=== PATIENT | male | born 1950 | race Caucasian/White ===

== ENCOUNTER 2019-09-11 09:40 | Outpatient (CLI) | payer OTHER, SELFPAY ==
[2019-09-09 11:01] VITALS: BMI 34.0
[2019-09-11] VITALS (7 sets, daily range): BP systolic 115–137; BP diastolic 65–84; PULSE 45–58; RESP 15–18; O2SAT 97–99
--- NOTE | ~2019-09-11 | XR_ITS ---
EXAMINATION: 1. CT lumbar spine w con 2. XR myelogram spine lumbosacral DATE: 09/11/2019 12:06 INDICATION: Degeneration of lumbar intervertebral disc. TECHNIQUE: The procedure including the risks, benefits, and alternatives was discussed with the patie nt. Risks discussed included spinal headache, cerebrospinal fluid leak, bleeding, and infection. The patient understood the risks and agreed to proceed. A timeout was performed to verify the patient' s name, date of , and procedure to be performed. The skin overlying the L2-L3 level was prepped and draped in usual sterile fashion. Subcutaneous 1% lidocaine was used for local anesthesia. A 22 gauge spinal needle was advanced under fluoroscopic guidance. 17 mL Omnipaque 180 was injected. The needle was removed and the entry site was cleaned and dressed. There were no immediate complications . Fluoroscopy exposure time was 0.5 minutes. The total number of images was 9. Computed tomography (C T) of the lumbar spine was performed without intravenous contrast. The mA was adjusted according to p atient size. Iterative reconstruction technique was employed. The dose-length product was 1089.90 mGy -cm. FINDINGS: LUMBAR MYELOGRAM: Real-time fluoroscopy demonstrates the needle at the L2-L3 level. There are indentations of the theca l sac that will be further described on the CT. POST-MYELOGRAM LUMBAR SPINE CT: There is 8 degrees dextrocurvature of lumbar spine. There are chronic bilateral L5 pars defects. Ther e is 7 mm anterolisthesis of L5 on S1. There is mildly decreased disc height at L1-L2, severely decre ased disc height at L2-L3, moderately decreased disc height at L3-L4, and severely decreased disc hei ght at L4-L5 and L5-S1 with endplate remodeling. The distal spinal cord morphology is normal. The con us medullaris is at L1. There is both subdural and intrathecal injection of contrast. Mass effect of the subdural component of the ejection causes moderate central canal stenosis at L4 that should resol ve with time. The following disc levels are specifically discussed: L1-L2: The disc is bulging. There is mild bilateral facet joint osteoarthritis. There is mild bilater al neural foraminal stenosis. There is mild central canal stenosis. L2-L3: The disc is bulging. There is mild bilateral facet joint osteoarthritis. There is mild bilater al neural foraminal stenosis. There is mild central canal stenosis. L3-L4: The disc is bulging. There is mild bilateral facet joint osteoarthritis. There is mild bilater al neural foraminal stenosis. There is mild central canal stenosis. L4-L5: The disc is bulging. There is severe bilateral facet joint osteoarthritis. There is moderate b ilateral neural foraminal stenosis. There is mild central canal stenosis. L5-S1: The disc is bulging. There is moderate right and mild left facet joint osteoarthritis. There i s moderate bilateral neural foraminal stenosis. There is mild central canal stenosis. IMPRESSION: 1. Severe lumbar spondylosis. Reviewed, dictated and finalized at location A. IMPRESSION: 1. Severe lumbar spondylosis.
[2019-09-11 11:17] LABS: Mean Platelet Volume 9.6 fl (7.4-10.4); Platelet Count Result 205 k/mm3 (150-375); Prothrombin Time 13.1 Seconds (11.1-14.7)
== END 2019-09-11 09:41 | disposition home or self-care (01) ==
PROVIDERS: Radiology Diagnostic Radiology
DX: M51.36 Other intervertebral disc degeneration, lumbar region (principal); M47.896 Other spondylosis, lumbar region
CPT/HCPCS: 36415; 62304; 72132; 85049; 85610; Q9965

== ENCOUNTER 2023-03-14 01:12 | Day surgery (SDC) | payer BC, SELFPAY ==
[2023-03-01 14:59] VITALS: BMI 34.2
--- NOTE | 2023-03-12 09:31 | SUR.PREOP ---
Patient called regarding upcoming procedure. Reviewed preop instructions, appointment times, and procedure prep.
--- NOTE | 2023-03-13 16:57 | PM.HPGS ---
History of Present Illness History of Present Illness Consent: Risks, benefits, and alternatives have been discussed and questions answered. Patient agrees to proceed with procedure. Chief complaint: history of colon polyp Narrative: Vic Barnett is a 72 year old male Referred for colon cancer screening. He does have history of polyps in fact had 3 adenomas removed 5 years ago. Review of Systems Review of Systems: All systems reviewed & are unremarkable except as noted in HPI and below PMFSH Social History Social History Years smoked: 20 Smoking status: Current every day smoker Tobacco type: cigars Substance use: current Substance use type: marijuana Last use: 02/26/23 Living arrangements: alone Meds Home Medications and Allergies Home Medications Medication Instructions Recorded Confirmed Type atorvastatin 40 mg tablet 40 mg PO HS 09/09/19 03/14/23 History ezetimibe 10 mg tablet 10 mg PO HS 09/09/19 03/14/23 History losartan 50 mg-hydrochlorothiazide 1 tablet PO DAILY 09/09/19 03/14/23 History 12.5 mg tablet amlodipine 5 mg tablet 5 mg PO DAILY 03/01/23 03/01/23 History aspirin 81 mg tablet 81 mg PO DAILY 03/01/23 03/14/23 History celecoxib 200 mg capsule 200 mg PO DAILY 03/01/23 03/14/23 History potassium chloride 20 mEq 20 meq PO DAILY 03/01/23 03/14/23 History tablet,extended release(part/cryst) (Klor-Con M) Allergies Allergy/AdvReac Type Severity Reaction Status Date / Time No Known Allergies Allergy Verified 03/14/23 11:34 Exam Resp: Auscultation: clear to auscultation bilaterally Cardio: Rate: regular rate Rhythm: regular rhythm GI: GI Palp: Yes Soft to palpation and No Tenderness to palpation present (GI) Assessment and Plan Assessment and plan (1) Colon cancer screening: Code(s): Z12.11 - Encounter for screening for malignant neoplasm of colon Status: Acute Assessment and Plan: Colonoscopy with possible biopsy or polypectomy or cautery or injection of substances.
[2023-03-14 11:38] VITALS: BP 123/75; PULSE 71; RESP 18; TEMP 36.4; O2SAT 98; BMI 34.1
[2023-03-14] MEDS: LACTATED RINGERS 1,000 ML 150 ML IV CONT (11:41)
--- NOTE | 2023-03-14 11:48 | WPDANESEPPF ---
Anes - Initial Pre Proc Eval Procedure: Operation Date: 03/14/23 13:00 Proposed Procedures p Colonoscopy - Edward Eddy MD Date/Time: 03/14/23 11:48 Surgeon: Edward Eddy MD Pre Op Diagnosis: history of colon polyp Patient Data Age: 72 Gender: M Height: 1.73 m Weight: 101.8 kg Last Vital Signs Temp 97.5 F L 03/14/23 11:38 Pulse 71 03/14/23 11:38 Resp 18 03/14/23 11:38 BP 123/75 03/14/23 11:38 Pulse Ox 98 03/14/23 11:38 O2 Del Method Room Air 03/14/23 11:38 Allergies Allergy/AdvReac Type Severity Reaction Status Date / Time No Known Allergies Allergy Verified 03/14/23 11:34 Home Medications Medication Instructions Recorded Confirmed Type atorvastatin 40 mg tablet 40 mg PO HS 09/09/19 03/14/23 History ezetimibe 10 mg tablet 10 mg PO HS 09/09/19 03/14/23 History losartan 50 mg-hydrochlorothiazide 1 tablet PO DAILY 09/09/19 03/14/23 History 12.5 mg tablet amlodipine 5 mg tablet 5 mg PO DAILY 03/01/23 03/01/23 History aspirin 81 mg tablet 81 mg PO DAILY 03/01/23 03/14/23 History celecoxib 200 mg capsule 200 mg PO DAILY 03/01/23 03/14/23 History potassium chloride 20 mEq 20 meq PO DAILY 03/01/23 03/14/23 History tablet,extended release(part/cryst) (SarahCon M) Patient hx anesthesia problems: none Family hx anesthesia problems: none Results Review: All pre-operative results and documents have been reviewed as part of the pre-operative evaluation. [facility] Social History Social History Years smoked: 20 Smoking status: Current every day smoker Tobacco type: cigars Substance use: current Substance use type: marijuana Last use: 02/26/23 Living arrangements: alone Anes - Eval Final PreProcedure Day of Procedure 03/14/23 11:48 Patient weight: obese Heart: regular rate and rhythm Lungs: clear to auscultation Airway: Mallampati scale class II Neurological: alert and oriented Last oral intake: >/= 8 hours ASA classification: III Emergent: no Anesthetic plan: proceed Anesthesia type and monitoring: general GIVS and standard monitoring Results Review: All pre-operative results and documents have been reviewed as part of the pre-operative evaluation. Informed Consent: The patient's anesthetic plan and its attendant risks and benefits were discussed with the patient/family/POA. Questions were solicited and answers provided to the satisfaction of the patient/family/POA.
[2023-03-14] MEDS: SIMETHICONE ORAL SUSPENSION 20 MG/0.3 ML 30 ML BOTTLE 0.6 ML IRRIGATION (12:47)
[2023-03-14 13:00] VITALS: BP 83/45; PULSE 53; RESP 17; O2SAT 98
[2023-03-14 13:10] VITALS: BP 112/56; PULSE 49; RESP 18; O2SAT 100
[2023-03-14 13:20] VITALS: BP 118/68; PULSE 49; RESP 19; O2SAT 99
== END 2023-03-14 13:29 | disposition home or self-care (01) ==
PROVIDERS: Visit Provider Internal Medicine Gastroenterology
PROC: 0DJD8ZZ Inspection of Lower Intestinal Tract, Via Natural or Artificial Opening Endoscopic (ICD-10-PCS; CPT 45378; principal; 2023-03-14 13:00)
DX: Z12.11 Encounter for screening for malignant neoplasm of colon (principal); D12.3 Benign neoplasm of transverse colon; F17.290 Nicotine dependence, other tobacco product, uncomplicated; F12.90 Cannabis use, unspecified, uncomplicated; E66.9 Obesity, unspecified; Z68.34 Body mass index [BMI] 34.0-34.9, adult; Z79.82 Long term (current) use of aspirin; Z86.010 Personal history of colon polyps
CPT/HCPCS: 45385; 88305; J2704; J7120

== ENCOUNTER 2023-07-23 06:40 | Outpatient (CLI) | payer BC, SELFPAY ==
--- NOTE | ~2023-07-23 | MR_ITS ---
EXAMINATION: MR brain/brain stem wo/w con DATE: 07/23/2023 07:34 INDICATION: Altered mental status, unspecified. TECHNIQUE: Magnetic resonance imaging (MRI) of the brain and brainstem was performed without intraven ous contrast. COMPARISON: None. FINDINGS: There is no intracranial hemorrhage, acute infarction, or abnormal intracranial mass lesion . The ventricles are normal in size. There is mild mucosal thickening in the paranasal sinuses. There are likely changes of left ocular lens replacement surgery. The mastoid air cells are normal. IMPRESSION: 1. Normal brain. Reviewed, dictated and finalized at location E. IMPRESSION: 1. Normal brain.
--- NOTE | ~2023-07-23 | US_ITS ---
EXAMINATION: US carotid duplex BI DATE: 07/23/2023 08:01 INDICATION: Altered mental status TECHNIQUE: Grayscale, color Doppler, and pulsed Doppler images of the cervical carotid arteries were obtained. The degree of vessel stenosis is placed in one of the following categories: normal, <50%, 5 0-69%, >=70% but less than near-occlusion, near-occlusion, or total occlusion. Note that percent sten osis relative to normal distal artery lumen diameter is indirectly measured from velocity measurement s as described by Luis, et al. Radiology 2003; 229:340-346. Notes: Normal: Peak systolic velocity <125 centimeters/sec and no plaque <50%. Peak systolic velocity <125 ( EDV <40; ICA/CCA PSV ratio <2.0; used these factors only a tandem lesions or low cardiac output or co ntralateral disease) 50-69 %: PSV 125-230 (EDV 40-100; ratio 2-4) >= 70% but less than near occlusion: PSV greater than 230 (EDV > 100; ratio> 4.0) Near Occlusion: PSV that is variable; markedly narrowed lumen Occlusion: Absent flow on color/spectral Doppler and no lumen on núñez scale. COMPARISON: None. FINDINGS: RIGHT: The right common carotid artery (CCA) peak systolic velocity (PSV) is 65 cm/s. The right internal car otid artery (ICA) PSV is 72 cm/s. The right ICA end-diastolic velocity (EDV) is 22 cm/s. The right IC A/CCA PSV ratio is 1.1. The external carotid artery (ECA) PSV is 80 cm/s. There is antegrade flow in the right vertebral artery. LEFT: The left CCA PSV is 78 cm/s. The left ICA PSV is 87 cm/s. The left ICA EDV is 29 cm/s. The left ICA/C CA PSV ratio is 1.1. The ECA PSV is 88 cm/s. There is antegrade flow in the left vertebral artery. IMPRESSION: 1. Less than 50% stenosis in the right internal carotid artery by sonographic criteria. 2. Less than 50% stenosis in the left internal carotid artery by sonographic criteria. Reviewed, dictated and finalized at location B. IMPRESSION: 1. Less than 50% stenosis in the right internal carotid artery by sonographic joni lee. 2. Less than 50% stenosis in the left internal carotid artery by sonographic dany maher.
--- NOTE | ~2023-07-23 | CT_ITS ---
EXAMINATION: CT lung screening DATE: 07/23/2023 07:03 INDICATION: Personal history of nicotine dependence TECHNIQUE: Computed tomography (CT) of the chest was performed without intravenous contrast. The dose -length product was 218.94 mGy-cm. Automated exposure control and iterative reconstruction technique were employed. COMPARISON: None FINDINGS: Heart size normal. No significant pleural or pericardial effusion. There are gallstones. Th ere are calcified granulomas of the spleen. There are calcified mediastinal lymph nodes, consistent w ith chronic granulomatous disease. There is calcified granuloma right upper lobe. There is a 2 mm lef t upper lobe nodule. There is a 2 mm) fissural nodule. Mild emphysema. No pneumothorax. No endobronch ial lesions. No focal consolidation. IMPRESSION: 1. Lung-RADS category 2: Benign appearance or behavior. Continue annual screening with noncontrast lo w-dose chest CT in 12 months. Reviewed, dictated and finalized at location B. IMPRESSION: 1. Lung-RADS category 2: Benign appearance or behavior. Continue annual screeni ng with noncontrast low-dose chest CT in 12 months.
== END 2023-07-23 06:41 | disposition home or self-care (01) ==
PROVIDERS: PCP Internal Medicine; Visit Provider Internal Medicine
DX: R41.82 Altered mental status, unspecified (principal); I10 Essential (primary) hypertension; E78.5 Hyperlipidemia, unspecified; Z87.891 Personal history of nicotine dependence
CPT/HCPCS: 70553; 71271; 93880; A9577

== ENCOUNTER 2023-10-01 15:13 | Outpatient (CLI) | payer BC, SELFPAY ==
--- NOTE | ~2023-10-01 | XR_ITS ---
EXAMINATION: XR cervical spine min 6V DATE: 10/01/2023 15:44 INDICATION: Left-sided neck pain. TECHNIQUE: 7 views of cervical spine including flexion and extension views were obtained. COMPARISON: None. FINDINGS: There is 11 degrees levoscoliosis of cervical spine. There is no abnormal motion on flexion or extension. Vertebral body heights are normal. There is severely decreased disc height at C6-C7. T here is multilevel facet joint osteoarthritis, severe on the right at C4-C5. There is multilevel unco vertebral joint osteoarthritis, severe on the left at C6-C7. There is mild right neural foraminal zully nosis at C4-C5. There is moderate left neural foraminal stenosis at C6-C7. IMPRESSION: 1. Severe spondylosis at C6-C7 and mild spondylosis at other levels. 2. Cervical levoscoliosis. Reviewed, dictated and finalized at location A.
[2023-10-01 15:45] LABS: Appearance Urine Clear (Clear); Bilirubin Urine Negative (Negative); Blood Urine Negative (Negative); Color Urine Yellow (Yellow); Glucose Urine UA Negative (Negative); Ketones Urine Negative (Negative); Leukocyte Esterase Ur Negative LEU/UL (Negative); Nitrate Urine Negative (Negative); Protein Urine Negative (Negative); Urobilinogen Urine 0.2 mg/dL (<2.0); pH Urine 5.5 (5.0-9.0)
[2023-10-01 15:46] LABS: Add Urine Microscopic? NO
== END 2023-10-01 15:14 | disposition home or self-care (01) ==
LOC: ANHLAB 15:15
PROVIDERS: PCP Internal Medicine; Visit Provider Internal Medicine
DX: M43.02 Spondylolysis, cervical region (principal); M41.82 Other forms of scoliosis, cervical region; R30.0 Dysuria
CPT/HCPCS: 72052; 81003; 87086

== ENCOUNTER 2023-10-10 14:33 | Outpatient (CLI) | payer BC, SELFPAY ==
--- NOTE | ~2023-10-10 | MR_ITS ---
MRI of the cervical spine Clinical History: Cervicalgia Technique: Axial T2-weighted and gradient images, and sagittal T1-weighted, T2-weighted, and STIR mayda ges were acquired. Findings: There is no fracture or cervical spine. There is minimal grade 1 retrolisthesis of C6 over C7. No suspicious bone marrow signal abnormality seen. At C2-C3, there is no disc bulge or herniation. No spinal canal stenosis or cord compression. There i s left neural foraminal narrowing with bilateral facet arthropathy, left worse than right. Right neur al foramen preserved. At C3-C4, there is no disc bulge or herniation. No spinal canal stenosis, cord compression, or neural foraminal narrowing. At C4-C5, there is no disc bulge or herniation. No spinal canal stenosis, cord compression, or neural foraminal narrowing. At C5-C6, there is minimal disc osteophyte complex with mild bilateral facet arthropathy. There is pr obable mild bilateral neural foraminal narrowing. No canal stenosis or cord compression. At C6-C7, there is advanced degenerative disc narrowing with mild disc osteophyte complex. No jose c anal stenosis or cord compression. Probable mild left neural foraminal narrowing. No definite right n eural foraminal narrowing. No abnormal signal seen in the spinal cord. Paravertebral soft tissues are unremarkable. Impression: Mild degenerative spondylosis, as detailed above. Reviewed, dictated and finalized at [facility]. Impression: Mild degenerative spondylosis, as detailed above.
== END 2023-10-10 14:34 | disposition home or self-care (01) ==
LOC: ANHIMG 14:34
PROVIDERS: PCP Internal Medicine; Visit Provider Internal Medicine
DX: M47.892 Other spondylosis, cervical region (principal)
CPT/HCPCS: 72141

== ENCOUNTER 2023-11-19 09:34 | Outpatient (CLI) | payer BC, SELFPAY ==
--- NOTE | ~2023-11-19 | US_ITS ---
Limited ABDOMINAL ULTRASOUND Ordering provider: Carlos Dodge MD History: . E83.119 - Hemochromatosis, unspecified . Comparison: None. FINDINGS: LIVER: Normal size with increased echogenic foci seen throughout the liver.. No perihepatic fluid col lections are identified. Normal flow of the portal vein. GALLBLADDER: Small stone is seen near to the neck. This stone measures 1.2 x 0.6 x 0.9 CNM. No eviden ce for stones, sludge, gallbladder wall thickening or pericholecystic fluid collections. A negative s onographic Martinez's sign was noted. BILIARY DUCTS: No evidence for intra or extrahepatic biliary dilation. Common bile duct measures 5 mm in diameter which is within normal limits. PANCREAS: Not well visualized. UPPER ABDOMINAL AORTA: Normal in caliber. IVC: Patent. FREE FLUID: None. IMPRESSION: Stone in the neck of the gallbladder. Multiple echogenic foci in the liver. Otherwise, Unremarkable c omplete ultrasound of the abdomen. Reviewed, dictated and finalized at location A. IMPRESSION: Stone in the neck of the gallbladder. Multiple echogenic foci in the liver. Oth erwise, Unremarkable complete ultrasound of the abdomen.
== END 2023-11-19 09:35 | disposition home or self-care (01) ==
PROVIDERS: PCP Internal Medicine; Visit Provider Internal Medicine
DX: N21.0 Calculus in bladder (principal); E83.119 Hemochromatosis, unspecified; Z86.19 Personal history of other infectious and parasitic diseases
CPT/HCPCS: 76705

== ENCOUNTER 2024-07-24 13:04 | Outpatient (CLI) | payer MEDICARE, SELFPAY ==
--- NOTE | ~2024-07-24 | CT_ITS ---
EXAMINATION: CT lung screening DATE: 07/24/2024 13:27 INDICATION: Personal history of nicotine dependence TECHNIQUE: Computed tomography (CT) of the chest was performed without intravenous contrast. The dose -length product was 141.40 mGy-cm. Automated exposure control and iterative reconstruction technique were employed. COMPARISON: CT dated 07/23/2023 FINDINGS: Heart size normal. No significant pleural or pericardial effusion. There are calcified gran ulomas of the spleen. There are gallstones. There are calcified mediastinal and hilar lymph nodes, co nsistent with chronic granulomatous disease. There is atherosclerosis of the aorta and coronary arter ies. Calcified granuloma right upper lobe. Stable 1-2 mm left upper lobe nodule. No new pulmonary nod ules or masses. No focal lytic or blastic lesions. IMPRESSION: 1. Lung-RADS category 2: Benign appearance or behavior. Continue annual screening with noncontrast lo w-dose chest CT in 12 months. Reviewed, dictated and finalized at location A. IMPRESSION: 1. Lung-RADS category 2: Benign appearance or behavior. Continue annual screeni ng with noncontrast low-dose chest CT in 12 months.
--- OUTSIDE RECORDS SUMMARY | 2024-07-24 14:01 | XMS_ITS | Encounter Summary ---
Author Organization [facility] Healthcare Address [address] [place] [address] Care Team Providers Care Linen Keeper Name Role Phone Bonifacio Jewell MD Primary Care Provider [phone] Carlos Dodge MD Primary Care Provider [phone] Encounter Details Date Type Department Care Team (Late st Contact Info) Description 03/12/2023 Orders Only [facility] EpicCare Link Bonifacio Jewell MD [address] [place] [address] Low back pain (Primary Dx) Social History Tobacco Use Types Packs/Day Years Used Date Smoking Tobacco: Former Cigarettes 2 20 1 0 - 1983 Smokeless Tobacco: Never Alcohol Use Standard Drinks/Week Comments Not Currently 0 (1 standard drink = 0.6 oz pur e alcohol) AUDIT-C Answer Date Recorded Q1: How often do you have a drink containing alc ohol? Monthly or less 04/09/2021 Average Number of Drinks Not on file 021 Frequency of Binge Drinking Not on file 03/30 Sex and Gender Information Value Date Recorded Sex Assigned at Not on file Legal Sex Male 8:35 PM HOME CARE NURSE Gender Identity Male 08/05/2020 7:57 AM CDT Sexual Orientation Straight 08/05/2020 7: 57 AM CDT documented as of this encounter Plan of Treatment Not on file documented as of this encounter Goals Goal Patient Goal Type Associated Problems Recent Progress Patient-Stated? Author CCM Chronic Pain Care Plan Chronic Care Management No Alessia Leija RN Note: Problem: Chronic Pain Goals: 1. Minimize further functional decline 2. Maximize quality of life 3. Control pain Strategies: - Activity/exercise program recommendation - Conservative stepwise pain medicine strategy with multi-disciplinary approach - Recommend healthy lifestyle strategies and compensatory methods as needed Reduce the likelihood of falling Lifestyle Alessia Haley, JOSE Note: Below are four things you can do to prevent falls: 1. Begin an exercise program to improve your leg strength & balance 2. Ask your doctor or pharmacist to review your medicines 3. Get annual eye check-ups & update your eyeglasses 4. Make your home safer by: Removing clutter & tripping hazards Putting railings on all stairs & adding grab bars in the bathroom Having good lighting, especially on stairs Contact your local community or [facility] for information on exercise, fall prevention programs, or options for improving home safety. documented as of this encounter Visit Diagnoses Diagnosis Low back pain- Primary Lumbago documented in this encounter Care Teams Linen Keeper Relationship Specialty Start Date End Date Bonifacio Jewell MD [address] [place] [address] PCP - General 11/08/16 08/27/23 Carlos Dodge MD [address] [place] [address] PCP - General Internal Medicine 08/28/23 documented as of this encounter
--- OUTSIDE RECORDS SUMMARY | 2024-07-24 14:01 | XMS_ITS | Clinical Summary ---
Author Organization [facility] Address [address] [place] [address] Care Team Providers Care Literary Agent Name Role Phone Carlos Dodge MD Primary Care Provider [phone] Allergies No known active allergies Medications sildenafiL (VIAGRA) 100 mg tablet Take 1 tablet (100 mg total) by mouth daily as needed for erectile dysfunction Active aspirin 81 mg chewable tablet TAKE 1 TABLET BY MOUTH EVERY DAY 90 tablet 2 Active celecoxib (CeleBREX) 200 mg capsule daily Active atorvastatin (LIPITOR) 40 mg tablet TAKE 1 TABLET BY MOUTH EVERY DAY 90 tablet 3 4 Active losartan-hydroc hlorothiazide (HYZAAR) 100-25 mg per tablet TAKE 1 TABLET BY MOUTH EVERY DAY 90 tablet 3 4 Active ezetimibe (ZETIA) 10 mg tablet TAKE 1 TABLET BY MOUTH EVERY DAY 90 tablet 3 4 Active potassium chloride ER (Klor-Con M20) 20 mEq CR tablet TAKE 1 TABLET BY MOUTH EVERY DAY 90 tablet 3 4 Active Active Problems Problem Noted Date Diagnosed Date Sacroiliitis 04/24/2023 Lumbar radiculopathy 04/24/2023 Family history of coronary arteriosclerosis 11/2018 Spondylolisthesis of lumbar region 09/04/2018 Testicular mass 08/05/2018 Hyperuricemia 10/17/2017 Vitamin D deficiency 10/17/2017 Chronic coronary artery disease 05/31/2017 Keratosis 11/20/2016 Prostatitis 03/15/2016 Bradycardia 03/05/2015 Gastroesophageal reflux disease 03/05/2015 Hemochromatosis 03/05/2015 Hypertension 03/05/2015 Nocturia 03/05/2015 Primary basal cell carcinoma (BCC) 03/05/2015 Sinusitis 03/05/2015 Chronic hepatitis C virus infection 12/12/2010 Hyperlipidemia 09/12/2010 Alcoholism Infectious viral hepatitis Substance abuse Immunizations Immunization Administration Dates Next Due Influenza, Quadrivalent, Renita l Culture-based MDCK, Preservative Free, Antibiotic Free, Intramuscular 02/06/2018 Influenza, Unspecified 03/15/2016 Tetanus Toxoid, Unspecified 04/30/2006 ZOSTER LIVE 04/14/2014 Surgical History Surgery Date Site/Laterality Comments NO PAST SURGERIES Medical History Medical History Date Comments Hypertension Alcoholism (HCC) Infectious viral hepatitis Substance abuse (HCC) Hepatitis C HTN (hypertension) HLD (hyperlipidemia) Bradycardia Hemochromatosis Hyperuricemia GERD (gastroesophageal reflux disease) CAD (coronary artery disease) Low back pain Arthritis Skin cancer Family History Medical History Relation Name Comments Lung cancer Brother Heart failure Father Family history of heart failure - (Added by TW Conv) Cancer Maternal Grandfather Coronary artery disease Mother Fami ly history of coronary artery disease - (Added by TW Conv) Hypertension Mother Family history of hypertension - (Added by TW Conv) Stroke Mother Family history of stroke - (Added by TW Conv) Relation Name Status Comments Brother Father Maternal Grandfather Mother Social History Tobacco Use Types Packs/Day Years Used Date Smoking Tobacco: Former Cigarettes 2 20 1 0 - 1983 Cigars Smokeless Tobacco: Never Tobacco Cessation:Counseling Given: Not Answered Alcohol Use Standard Drinks/Week Comments Not Currently 0 (1 standard drink = 0.6 oz pur e alcohol) AUDIT-C Answer Date Recorded Q1: How often do you have a drink containing alcohol? Never 04/24/2023 Q2: How many drinks containi ng alcohol do you have on a typical day when you are drinking? Patient does not drink Frequency of Binge Drinking Not on file 03/31 Sex and Gender Information Value Date Recorded Sex Assigned at Not on file Legal Sex Male 8:35 PM CERTIFIED ORTHOTIST Gender Identity Male 08/05/2020 7:57 AM CDT Sexual Orientation Straight 08/05/2020 7: 57 AM CDT Obstetrics History Last Filed Vital Signs Vital Sign Reading Time Taken Comments Blood Pressure 124/80 08/28/2023 9:45 AM CDT Pulse 60 08/28/2023 9:45 AM CDT Temperature 36.4 C (97.5 F) 04/24/2023 10:13 AM CERTIFIED ORTHOTIST Respiratory Rate 16 04/24/2023 11:32 AM CERTIFIED ORTHOTIST Oxygen Saturation 96% 08/28/2023 9:45 AM CDT Inhaled Oxygen Concentration - - Weight 106.5 kg (234 lb 12 oz) 08/28/2023 9:45 A M CDT Height 175.3 cm (5' 9 ) 08/28/2023 9:45 AM CDT Body Mass Index 34.67 08/28/2023 9:45 AM CDT Plan of Treatment Health Maintenance Due Date Last Done Comments Colon Cancer Screening-Colonoscopy 1950 Depression Screening 1950 DTaP/Tdap/Td Vaccine (1 - Tdap) 12/30/1963 Hepatitis B Screening 1970 Zoster Vaccine (2 of 3) 06/09/2014 04/14/2014 Abdominal Aortic Aneurysm (A AA) Screen 2017 Well Visit 65+ 2017 Fall Risk Assessment 07/17/2019 07/16/2018 Hepatitis C Screening Completed 06/08/2016 , 06/03/2015, 05/27/2015, Additional history exists Pneumococcal vaccine 65+ Completed 01/30/2023, 0304/2020 Influenza Vaccine Completed 12/28/2023, , 02/11/2021, Additional history exists Goals Goal Patient Goal Type Associated Problems Recent Progress Patient-Stated? Author CCM Chronic Pain Care Plan Chronic Care Management No Alessia Leija, JOSE Note: Problem: Chronic Pain Goals: 1. Minimize further functional decline 2. Maximize quality of life 3. Control pain Strategies: - Activity/exercise program recommendation - Conservative stepwise pain medicine strategy with multi-disciplinary approach - Recommend healthy lifestyle strategies and compensatory methods as needed Reduce the likelihood of falling Lifestyle No Alessia Leija, JOSE Note: Below are four things you [...] on stairs Contact your local community or senior center for information on exercise, fall prevention programs, or options for improving home safety. Insurance [facility] [employer] CHOICE FOR[facility]LY [facility], [facility]1983 ACCESS CHOICE Care Teams Literary Agent Relationship Specialty Start Date End Date Carlos Dodge MD [address] [place] [address] PCP - General Internal Medicine 08/28/23
--- OUTSIDE RECORDS SUMMARY | 2024-07-24 14:01 | XMS_ITS | Data Portability ---
Author Organization [facility] [employer] Address [address] [place] [address] Care Team Providers Care Warehouse Consultant Name Role Phone CHARLA HERRMANN Neurosurgeon CHARITY HA Assurance Officer SHELBY EYECARE Supervisor Pile Driving RAMESH JACINTO Roustabout Crew Pusher LEEROY LEAL Braille Coder JOSELIN BAILON Liaison Inspection Laboratory Assistant MUNDO DERAS Surgical Oncologist Assessment No assessment recorded. Plan of Treatment Reminders Order Date Submit Date Provider Last Modified By Organization Details Last Modified Time Details Appointments None recorded. Lab urinalysis, dipstick 2022 023 PET[facility] Main Office, [address] [facility], [address], [place], [address], 3 10:50:38 lipid panel, blood 2022 023 [facility], [address], [place], [address], 3 07:29:01 unlisted lab - CMP/CBC/uri c acid 2022 023 [facility], [address], [place], [address], 3 07:29:00 PSA, serum or plasma 2022 023 [facility], [address], [place], [address], 09:54:17 urinalysis, dipstick 2022 023 [facility] Main Office, [address] [facility], [address], [place], [address], 10:17:52 Referral None recorded. Procedures body composition analysis (PROC) 2022 023 [facility] Main Office, [address] [facility], [address], [place], [address], 05:00:43 gait test (PROC) 2022 023 [facility] Main Office, [address] [facility], [address], [place], [address], 10:09:00 Surgeries None recorded. Imaging electrocard iogram 2022 023 [email or web address] Main Office, [address] [facility], [address] [facility], [place], [address], 11:05:42 audiogram 2022 023 [email or web address] [address] Main Office, [address] [facility], [address], [place], [address], 11:05:42 Medication Orders diazepam 2 mg tablet 2022 023 [facility] [id number], [place], [address], 11:58:20 acyclovir 5 % topical ointment 2022 023 [facility] [id number], [place], [address], 11:58:22 Patient TargetsNo targets recorded. Patient Instructions Encounter Date Encounter Id Patient Instructions Last Modified By Organization Details Last Modified Time 09/27/2022 [id number] spirometry testing* CAREN Not avail able 09/27/2022 10:11:37 visual acuity* CAREN Not available 0 09/27/2022 10:09:57 (ATUL) ankle brac hial index* CAREN Not available 09/27/2022 10:10:50 mann anxiety inventory* CAREN Not available 09/27/2022 10:15:34 epworth sleepine ss scale* CAREN Not available 09/27/2022 10:13:26 tissue technologist test* CAREN Not available 09/27 10:08:09 Patient reminded blood was drawn today. Encouraged to hydrate and be cautious as they may become dizzy or light headed. If issues or symptoms, return to clinic or contact nearest medical personnel. We look forward to seeing you to discuss the results of these labs. Be well and see you soon! Not available 09/27/2022 09:22:37 10/30/2022 [id number] In compliance wi Medicare guidelines, we will be billing Medicare to inform them of your adherence to completing your necessary preventive care. Not available 10/30/2022 09:17:54 Immunization Recommendations: Influenza causes approximately 24,000 deaths per year. The vaccine prevents a major portion of the number of cases and reduces hospitalizations . We will have ours by JAN 28. The Pneumococcal vaccine is recommended to prevent the invasive complications of the pneumococcal bacteria. There is a new vaccine, Prevnar 20, that we can give you on a future visit or call the office the next time you are in the area. The Tetanus/Diptheria vaccine is given as a booster every ten years. The last one I have a record of is in 2006. If you get a cut or wound, call our office and we can get campa another. {{ You were given the first dose today. The next dose is due in one month. You were given the second dose of the HBV vaccine today. The next dose is due in 5 months. You were given the third dose of the HBV vaccine today. You are now fully vaccinated. Your Hepatitis B vaccination is up to date. However, you declined the Hepatitis B vaccine. }} Vitamins and Supplements I believe that the illnesses so many of us will face in the future are strongly influenced by years of food choices. For those looking to further optimize specific aspects of health, there are supplements. As the name states, supplements simply supplement healthy habits. Turmeric Turmeric, also know as curcuma longa or curcumin, is created when the horizontal roots of the plant are dug up, baked, and ground into an orange powder. Aside from adding some spice to and dishes, turmeric has some medicinal properties as well. Turmeric has anti-inflammatory properties and can reduce the pain associated with different forms of arthritis. Turmeric has multiple anti-cancer properties and supplementation with turmeric has been studied extensively as a way to interrupt cancer formation. This includes multiple different tumor types and multiple different mechanisms of action. In addition, turmeric is useful as a preventive agent against Alzheimer s disease as it interrupts the accumulation of certain plaques that are found in the brains of Alzheimer s patients. The incidence of Alzheimer s is lowest in regions of the world where turmeric consumption is highest. Most important, turmeric is safe and without any significant risks. Vitamin K2 When someone mentions Vitamin K, most of us think about the vitamin K found in dark, leafy greens which helps with clotting and which patients on blood thinners like Coumadin need to avoid. That describes vitamin K1. Vitamin K2 is something very different which fills the role as calcium director in the body. Calcium enters the body when we consume it and should find its way into only two places: bones and teeth. Unfortunately, calcium occasionally becomes misdirected and can end up in places it doesn t belong, like the byrd of arteries where it is associated with increased risk of heart disease. Vitamin K2 serves to activate an enzyme called osteocalcin, which pumps calcium into bones and teeth. In doing so, it helps to strengthen bones and prevent osteoporosis. It works together with Vitamins A and D to perform this role, but ultimately it is Vitamin K2, which turns on this important enzyme. Vitamin K2 also turns on another enzyme which pumps calcium out of the artery wall. Foods that are richest in K2 are grass fed meats, grass fed butter, natto (fermented soy, an delicacy), egg yolks, and chicken breast. It s probably easiest to consume Vitamin K2 via supplements and the correct dose is 100-200 mcg daily, preferably taken with a meal. Coenzyme Q10 Coenzyme Q10 is something our bodies manufacture. It serves a dual purpose of not only being an antioxidant but also serves an important role in helping to produce energy in our cells. It is produced in the heart, liver, kidneys and pancreas and supplementation can be important in several conditions. As we age the natural production of Coenzyme Q10 declines and so does our ability to convert Coenzyme Q10 to its active form, Ubiquinol. There are studies suggesting benefit for Coenzyme Q10 in patients with congestive heart failure. In this condition, supplementation clearly improves ejection fracture, a very important measure of cardiac function. In addition, those patients who use statin type cholesterol medications are at risk for a reduction in Coenzyme Q10 production and we can attribute statin related muscle side effects to this depletion. For this reason, I suggest Coenzyme Q10 supplementation with 100-200mg per day in those taking statins daily. Vitamin D Vitamin D is really more of a hormone than a vitamin. It is produced in the skin upon exposure to sun and production only occurs when you re outside at certain times of day as the angle of the suns rays has a lot to do with effective production. Vitamin D supplements may help to reduce postmenopausal bone loss and improve tooth retention. Low vitamin D levels are associated with a higher risk of rheumatoid arthritis, cardiovascular disease, insulin resistance and diabetes, higher cholesterol, higher levels of inflammatory markers, depression, asthma and allergies. I have found the sweet spot for Vitamin D seems to be in the 40-80 range. Multivitamins Numerous recent studies have concluded that there does NOT appear to be a health benefit in the majority of people who take multivitamins. If you follow a healthy diet, such as the Mediteranean Diet, you can get all of the vitamins and minerals you need from food. Cardiovascular Prevention Recommendation: Lifestyle intervention to lower cholesterol: Certain foods will certainly help to lower LDL cholesterol and avoiding certain foods will help to lower triglycerides (circulating fats which are linked to heart disease when elevated). Foods that are helpful to lower LDL cholesterol include fiber rich foods like fruit and vegetables. The focus should be on vegetables however and not excess fruit as too much fruit can lead to insulin resistance and worsen cholesterol. All nuts, but particularly macadamia nuts, are rich in the fats helpful to lower cholesterol. Avoiding or limiting sugars and starches assists in lowering triglycerides and this will typically lower not only the triglyceride level, but also the number of ApoB particles as well. Elevated MPO: Myeloperoxidase is a blood marker that signifies increased inflammation of the wall of the artery and increased short-term cardiac risk. We know that heart disease is not simply a disease caused by increased cholesterol but is a disease linked to inflammation of the vessel wall. Elevated hs-CRP: Highly sensitive C-reactive protein is a blood test that is a marker of coronary inflammation and future cardiac risk. Values above 3.0 (normal <1.0) indicate higher cardiovascular risk. Favorable lifestyle changes in addition to aspirin and statins have been shown to lower C-reactive protein levels. ATUL: Your ankle brachial index was normal indicating that you do NOT have peripheral arterial disease (evidence of blockages in the arteries that supply blood to the legs.) We perform this evaluation because peripheral arterial disease is a marker of risk of heart attack. Brain Health: We have learned that dementia is a process that begins up to 30 years before it finally manifests as memory loss. Recent studies have demonstrated brain changes which take place many years in advance of the actual clinical manifestations . Diet: There is significant data demonstrating the ability of a Mediterranean style diet to prevent cognitive decline in those who adhere to this style of eating exterminator. Mediterranean eating involves a focus on nuts, oily fish, fruits and vegetables, olives and olive oil and limited red meat and other forms of saturated fat. While this diet does have excellent data, there is also good data that increasing healthy fats in general may improve brain health. Healthy fats include avocado, olives and olive oil, nuts (except for peanuts), and even saturated fats like coconut, dark chocolate, and certain healthy meats (grass fed, organic, and not overcooked). Carbohydrates in excess lead to insulin resistance, prediabetes, and ultimately to diabetes and these states are strongly associated with the development of Alzheimer s dementia Foods that may help with brain health and memory include apples, beets, blueberries, caffeinated green tea and coffee, cocoa (in dark chocolate), pecans and pistachios, red grapes (limit as they re high in sugar), spinach, black tea, and tomatoes. Curcumin, Turmeric, or garcia: This spice is available in capsule form. This can also be consumed as food although absorption into the bloodstream is difficult unless accompanied by black pepper (which most of the supplements contain). The dosage can vary from 250mg to over 1000mg per day, and this supplement has multiple studies demonstrating not only brain protection but also protection against a variety of malignancies. Vitamin D: vitamin D is involved in multiple brain processes and normal levels are required for optimal function. Lifestyle: Physical exercise is one of the best activities you can do to promote good brain health. We know from multiple studies that patients who exercise have larger memory centers (the hippocampus). Even those who begin to exercise later in life have enlargement of the memory center, and this increase in size is associated with improvement in cognitive function. Exercise also releases a chemical called Brain Derived Neurotropic Factor which leads to NEW brain cell formation. Physical exercise is probably as important, if not more important, than brain exercises like puzzles and other programs designed to challenge us cognitively. Overall Health and Lifestyle Recommendations: Excess weight increases the risk of coronary artery disease, diabetes, hypertension and various cancers. The Body Mass Index (BMI) is an estimate of body fat and is a useful and objective tool to assess whether one is overweight or obese. BMI is calculated from your height and weight. A BMI of 20-25 is considered normal weight. A BMI of 25-30 is overweight. Participate in 30-45 minutes of moderate aerobic exercise (brisk walk) at least 5 days a week. Good dental hygiene includes brushing your teeth twice a day and flossing daily. There is evidence that inflammation around your gums is correlated with inflammation in your vascular system and an increased risk of heart attack and strokes. Men only -Testosterone - your level was fine. Cancer Prevention Recommendations: Skin Cancer Screening: No suspicious lesions were seen today. SPF 30 (or higher) sunscreen and a brimmed hat are recommended during times of sun exposure. Colorectal Cancer Screening: You have a history of colon polyps. You will be gettng another colonoscopy this year. {{Personal history of polyps Family history of polyps Personal history of colon cancer Family history of colon cancer}} [email or web address] Not available 10/31/2022 17:27:12 02/16/2023 [id number] cold sores: care instructions Not available 02/16/2023 11:58:17 Reason for Referral None Reported. Results Created Date Observation Date Name Description Value Unit Range Abnormal Flag Note LastModifiedBy Organization Detail LastModifiedTime 09/07/19 23 09/06/2022 URINA LYSIS , WITH MICRO SCOPI C, REFLE X CULTU RE color, urine Light Yellow Not Available [facility] (Lab) [address], [place], [address], 09/07/2022 12:36:32 09/07/19 23 09/06/2022 URINA LYSIS , WITH MICRO SCOPI C, REFLE X CULTU RE clarity, urine Clear Not Available [facility] (Lab) [address], [place], [address], 09/07/2022 12:36:32 09/07/19 23 09/06/2022 URINA LYSIS , WITH MICRO SCOPI C, REFLE X CULTU RE specific gravity, urine 1.017 . 1.005- 1.035 Not Available [facility] (Lab) [address], [place], [address], 09/07/2022 12:36:32 09/07/19 23 09/06/2022 URINA LYSIS , WITH MICRO SCOPI C, REFLE X CULTU RE pH, urine 5.5 . 5.0-7. 0 Not Available [facility] (Lab) [address], [place], [address], 09/07/2022 12:36:32 09/07/19 23 09/06/2022 URINA LYSIS , WITH MICRO SCOPI C, REFLE X CULTU RE protein, UA Negati ve mg/dL negati ve, 10-20 Not Available [facility] (Lab) [address] [place], [address], 09/07/2022 12:36:32 09/07/19 23 09/06/2022 URINA LYSIS , WITH MICRO SCOPI C, REFLE X CULTU RE glucose, urine Normal mg/dL negati ve Not Available [facility] (Lab) [address], [place], [address], 09/07/2022 12:36:32 09/07/19 23 09/06/2022 URINA LYSIS , WITH MICRO SCOPI C, REFLE X CULTU RE ketones, urine Negati ve mg/dL negati ve Not Available [facility] (Lab) [address], [place], [address], 09/07/2022 12:36:32 09/07/19 23 09/06/2022 URINA LYSIS , WITH MICRO SCOPI C, REFLE X CULTU RE bilirubin, urine Negati ve negati ve Not Available [facility] (Lab) [address], [place], [address], 09/07/2022 12:36:32 09/07/19 23 09/06/2022 URINA LYSIS , WITH MICRO SCOPI C, REFLE X CULTU RE blood, urine Negati ve negati ve Not Available [facility] (Lab) [address], [place], [address], 09/07/2022 12:36:32 09/07/19 23 09/06/2022 URINA LYSIS , WITH MICRO SCOPI C, REFLE X CULTU RE nitrite, urine Negati ve negati ve Not Available [facility] (Lab) [address], [place], [address], 09/07/2022 12:36:32 09/07/19 23 09/06/2022 URINA LYSIS , WITH MICRO SCOPI C, REFLE X CULTU RE leukocyte esterase, urine Negati ve lalita/u L negati ve Not Available [facility] (Lab) [address] [place], [address], 09/07/2022 12:36:32 09/07/19 23 09/06/2022 URINA LYSIS , WITH MICRO SCOPI C, REFLE X CULTU RE urobilinogen , urine Normal mg/dL normal , <2.0 Not Available [facility] (Lab) [address] [place], [address], 09/07/2022 12:36:32 09/07/19 23 09/06/2022 URINA LYSIS , WITH MICRO SCOPI C, REFLE X CULTU RE RBC, urine 0-2 /hpf none, 0-2 Not Available [facility] (Lab) [address] [facility] [place], [address], 09/07/2022 12:36:32 09/07/19 23 09/06/2022 URINA LYSIS , WITH MICRO SCOPI C, REFLE X CULTU RE WBC, urine 0-5 /hpf none, 0-5 Not Available [facility] (Lab) [address], [place], [address], 09/07/2022 12:36:32 09/07/19 23 09/06/2022 URINA LYSIS , WITH MICRO SCOPI C, REFLE X CULTU RE squamous epithelial cells, urine Trace /hpf none abnormal Not Available [facility] (Lab) [address], [place], [address], 09/07/2022 12:36:32 09/07/19 23 09/06/2022 URINA LYSIS , WITH MICRO SCOPI C, REFLE X CULTU RE bacteria, urine None /hpf none Not Available [facility] (Lab) [address], [place], [address], 09/07/2022 12:36:32 09/07/19 23 09/06/2022 URINA LYSIS , WITH MICRO SCOPI C, REFLE X CULTU RE hyaline cast, urine 0-2 /lpf none, 0-2 Not Available [facility] (Lab) [address], [place], [address], 09/07/2022 12:36:32 09/07/19 23 09/06/2022 URINA LYSIS , WITH MICRO SCOPI C, REFLE X CULTU RE mucus, urine Few /hpf none, trace, few Urine Cultu re not perfo rmed per refle x stephen col. Not Available [facility] (Lab) [address], [place], [address], 09/07/2022 12:36:32 09/07/19 23 09/06/2022 CT/GC (RUTH) , URINE chlamydia trachomatis, PCR NEGATI VE negati ve Not Available [facility] (Lab) [address], [place], [address], 09/07/2022 12:36:32 09/07/19 23 09/06/2022 CT/GC (RUTH) , URINE neisseria gonorrhoeae, PCR NEGATI VE negati ve Not Available [facility] (Lab) [address], [place], [address], 09/07/2022 12:36:32 09/28/19 23 09/27/2022 PSA TOTAL PSA, total 0.35 NG/mL 0.00-4 .00 This assay was perfo rmed using [employer] an [employer] er reage nts and test kits. Value s obtai ebony with other assay metho ds or kits canno t be used inter kumari eably . Not Available [facility] (Lab) [address], [place], [address], 09/28/2022 09:54:17 09/28/1909/27/2022 APOLI POPRO TEIN B apolipoprote in B 50 mg/dL <90 Risk: Optim al <90 mg/dL ; Moder ate 90-11 9 mg/dL ; High >= 120 mg/dL ; Cardi ovasc ular event risk categ ory cut point s (opti mal, moder ate, high) are based on [facility] [employer] i[facility] n recom menda tions - Dieter cerda TA et al. J of Clin Lipid . 2015; 9: 129-1 69 and Svetlana PORTILLO et al. Endoc r Pract . 2017; 23(Akins ppl 2):1- 87. Not Available [facility] - Manual Order Only [address], [place], [address], 10/03/2022 23:24:09 09/28/1909/27/2022 HSCRP hs-CRP 1.1 mg/L <1.0 high The AHA/C DC Guide lines recom mend hs-CR P range s for ident ifyin g Relat candis Cardi ovasc ular Risk in patie nts ages >17 years : <1.0 mg/L Lower Relat candis Cardi ovasc ular Risk; 1.0-3 .0 mg/L [place] ge Relat candis Cardi ovasc ular Risk; 3.1-1 0.0 mg/L Highe r Relat candis Cardi ovasc ular Risk. For patie nts with highe r cardi ovasc ular risk, consi belen retes ting in 1-2 weeks to exclu de a benig n trans ient eleva tion secon sheri to infec tion or infla mmati on from the basel ine CRP value . Persi stent eleva tions of >10.0 mg/L upon retes ting may be assoc iated with infec tion and infla mmati on. The AHA/C DC recom menda tions are based on Pears on TA et al. Circu latio n. 2003; 107:4 99-51 1. Not Available [facility] - Manual Order Only [address], [place], [address], 10/03/2022 23:24:10 09/28/19 23 09/27/2022 CBC WITH DIFFE RENTI AL WBC 9.6 K/uL 3.8-10 .8 Not Available [facility] - Manual Order Only [address], [place], [address], 10/03/2022 23:24:11 09/28/19 23 09/27/2022 CBC WITH DIFFE RENTI AL RBC 4.75 M/uL 4.20-5 .80 Not Available [facility] - Manual Order Only [address], [place], [address], 10/03/2022 23:24:11 09/28/19 23 09/27/2022 CBC WITH DIFFE RENTI AL hemoglobin 14.7 g/dL 13.2-1 7.1 Not Available [facility] - Manual Order Only [address], [place], [address], 10/03/2022 23:24:11 09/28/19 23 09/27/2022 CBC WITH DIFFE RENTI AL hematocrit 43.7 % 38.5-5 0.0 Not Available [facility] - Manual Order Only [address], [place], [address], 10/03/2022 23:24:11 09/28/19 23 09/27/2022 CBC WITH DIFFE RENTI AL MCV 92.0 fL 80.0-1 00.0 Not Available [facility] - Manual Order Only [address], [place], [address], 10/03/2022 23:24:11 09/28/19 23 09/27/2022 CBC WITH DIFFE RENTI AL MCH 30.9 pg 27.0-3 3.0 Not Available [facility] - Manual Order Only [address], [place], [address], 10/03/2022 23:24:11 09/28/19 23 09/27/2022 CBC WITH DIFFE RENTI AL MCHC 33.6 g/dL 32.0-3 6.0 Not Available [facility] - Manual Order Only [address], [place], [address], 10/03/2022 23:24:11 09/28/19 23 09/27/2022 CBC WITH DIFFE RENTI AL red cell distribution width 12.2 % 11.0-1 5.0 Not Available [facility] - Manual Order Only [address], [place], [address], 10/03/2022 23:24:11 09/28/19 23 09/27/2022 CBC WITH DIFFE RENTI AL platelet count 222 K/uL 140-40 0 Not Available [facility] - Manual Order Only [address], [place], [address], 10/03/2022 23:24:11 09/28/19 23 09/27/2022 CBC WITH DIFFE RENTI AL mean platelet volume 9.8 fL 7.5-12 .5 Not Available [facility] - Manual Order Only [address], [place], [address], 10/03/2022 23:24:11 09/28/19 23 09/27/2022 CBC WITH DIFFE RENTI AL neutrophil % 65.1 % 38.0-8 0.0 Not Available [facility] - Manual Order Only [address], [place], [address], 10/03/2022 23:24:11 09/28/19 23 09/27/2022 CBC WITH DIFFE RENTI AL neutrophil absolute 6.28 K/uL 1.50-7 .80 Not Available [facility] - Manual Order Only [address], [place], [address], 10/03/2022 23:24:11 09/28/19 23 09/27/2022 CBC WITH DIFFE RENTI AL lymphocyte % 19.1 % 15.0-4 9.0 Not Available [facility] - Manual Order Only [address], [place], [address], 10/03/2022 23:24:11 09/28/19 23 09/27/2022 CBC WITH DIFFE RENTI AL lymphocyte absolute 1.84 K/uL 0.85-3 .90 Not Available [facility] - Manual Order Only [address], [place], [address], 10/03/2022 23:24:11 09/28/19 23 09/27/2022 CBC WITH DIFFE RENTI AL monocyte % 7.1 % 0.0-13 .0 Not Available [facility] - Manual Order Only [address], [place], [address], 10/03/2022 23:24:11 09/28/19 23 09/27/2022 CBC WITH DIFFE RENTI AL monocyte absolute 0.68 K/uL 0.20-0 .95 Not Available [facility] - Manual Order Only [address], [place], [address], 10/03/2022 23:24:11 09/28/19 23 09/27/2022 CBC WITH DIFFE RENTI AL eosinophil % 7.8 % 0.0-8. 0 Not Available [facility] - Manual Order Only [address], [place], [address], 10/03/2022 23:24:11 09/28/19 23 09/27/2022 CBC WITH DIFFE RENTI AL eosinophil absolute 0.75 K/uL 0.00-0 .50 high Not Available [facility] - Manual Order Only [address], [place], [address], 10/03/2022 23:24:11 09/28/19 23 09/27/2022 CBC WITH DIFFE RENTI AL basophil % 0.9 % 0.0-2. 0 Not Available [facility] - Manual Order Only [address], [place], [address], 10/03/2022 23:24:11 09/28/19 23 09/27/2022 CBC WITH DIFFE RENTI AL basophil absolute 0.09 K/uL 0.00-0 .20 Not Available [facility] - Manual Order Only [address], [place], [address], 10/03/2022 23:24:11 09/28/19 23 09/27/2022 COMPR EHENS CANDIS METAB OLIC PANEL glucose 91 mg/dL 65-99 Not Available [facility] - Manual Order Only [address], [place], [address], 10/03/2022 23:24:11 09/28/19 23 09/27/2022 COMPR EHENS CANDIS METAB OLIC PANEL calcium 9.4 mg/dL 8.5-10 .5 Not Available [facility] - Manual Order Only [address], [place], [address], 10/03/2022 23:24:11 09/28/19 23 09/27/2022 COMPR EHENS CANDIS METAB OLIC PANEL sodium 138 mmol/ L 136-14 5 Not Available [facility] - Manual Order Only [address], [place], [address], 10/03/2022 23:24:11 09/28/19 23 09/27/2022 COMPR EHENS CANDIS METAB OLIC PANEL potassium 4.1 mmol/ L 3.5-5. 1 Not Available [facility] - Manual Order Only [address], [place], [address], 10/03/2022 23:24:11 09/28/19 23 09/27/2022 COMPR EHENS CANDIS METAB OLIC PANEL chloride 102 mmol/ L 95-108 Not Available [facility] - Manual Order Only [address], [place], [address], 10/03/2022 23:24:11 09/28/19 23 09/27/2022 COMPR EHENS CANDIS METAB OLIC PANEL CO2 (carbon dioxide) 21 mmol/ L 21-33 Not Available [facility] - Manual Order Only [address], [place], [address], 10/03/2022 23:24:11 09/28/19 23 09/27/2022 COMPR EHENS CANDIS METAB OLIC PANEL BUN (blood urea nitrogen) 28 mg/dL 8-23 high Not Available [facility] - Manual Order Only [address], [place], [address], 10/03/2022 23:24:11 09/28/19 23 09/27/2022 COMPR EHENS CANDIS METAB OLIC PANEL creatinine 1.20 mg/dL 0.70-1 .35 Not Available [facility] - Manual Order Only [address], [place], [address], 10/03/2022 23:24:11 09/28/19 23 09/27/2022 COMPR EHENS CANDIS METAB OLIC PANEL protein, total 6.6 g/dL 6.1-8. 0 Not Available [facility] - Manual Order Only [address], [place], [address], 10/03/2022 23:24:11 09/28/19 23 09/27/2022 COMPR EHENS CANDIS METAB OLIC PANEL albumin 4.1 g/dL 3.5-5. 5 Not Available [facility] - Manual Order Only [address], [place], [address], 10/03/2022 23:24:11 09/28/19 23 09/27/2022 COMPR EHENS CANDIS METAB OLIC PANEL globulin 2.5 g/dL_ (calc ) 1.8-3. 8 Not Available [facility] - Manual Order Only [address], [place], [address], 10/03/2022 23:24:11 09/28/19 23 09/27/2022 COMPR EHENS CANDIS METAB OLIC PANEL albumin/glob ulin ratio 1.6 calc 1.0-2. 5 Not Available [facility] - Manual Order Only [address], [place], [address], 10/03/2022 23:24:11 09/28/19 23 09/27/2022 COMPR EHENS CANDIS METAB OLIC PANEL alkaline phosphatase 100 U/L <150 Not Available [facility] - Manual Order Only [address], [place], [address], 10/03/2022 23:24:11 09/28/19 23 09/27/2022 COMPR EHENS CANDIS METAB OLIC PANEL alanine aminotransfe rase (ALT) 15 U/L 9-46 Not Available [place] - Manual Order Only [address], [place], [address], 10/03/2022 23:24:11 09/28/19 23 09/27/2022 COMPR EHENS CANDIS METAB OLIC PANEL aspartate aminotransfe rase (AST) 18 U/L 10-35 Not Available [facility] - Manual Order Only [address], [place], [address], 10/03/2022 23:24:11 09/28/19 23 09/27/2022 COMPR EHENS CANDIS METAB OLIC PANEL bilirubin, total 0.5 mg/dL <1.3 Not Available [facility] - Manual Order Only [address], [place], [address], 10/03/2022 23:24:11 09/28/19 23 09/27/2022 COMPR EHENS CANDIS METAB OLIC PANEL BUN/creatini ne ratio 23 calc 6-22 high Not Available [facility] - Manual Order Only [address], [place], [address], 10/03/2022 23:24:11 09/28/19 23 09/27/2022 COMPR EHENS CANDIS METAB OLIC PANEL eGFR 65 mL/mi n/1.7 3m_sq uared >59 The eGFR is based on the CKD-E PI 2020 equat ion. To calcu late the new eGFR from a previ ous Creat inine or Cysta tin C resul t, go to https ://roro brocky.o rg/pr ofess ional s/kdo qi/gf r%5Fc alcul ator. Not Available [facility] - Manual Order Only [address], [place], [address], 10/03/2022 23:24:11 09/28/19 23 09/27/2022 TESTO STERO NE, TOTAL (IA, ADULT MALES ) testosterone 460 NG/dL 193-74 0 For addit ional infor joey adhiakri e refer to https ://roro schmidt dhear tlab. com/b iotin FAQ/ (this link is being provi ded for infor ksenia nal/e ducat ional purpo ses only) . Not Available [facility] - Manual Order Only [address], [place], [address], 10/03/2022 23:24:12 09/28/19 23 09/27/2022 THYRO ID STIMU LATIN G HORMO NE (TSH) thyroid stimulating hormone (TSH) 0.90 mlu/L 0.40-4 .50 For addit ional infor ksenia n, joey e refer to http: //[facility] catmarj n.Que stDia gnost ics.c om/fa q/FAQ 138 This test was perfo rmed using the Sieme ns TSH immun oassa y metho d. Value s obtai ebony with previ ous assay metho ds canno t be used inter kumari eably . Not Available [facility] - Manual Order Only [address], [place], [address], 10/03/2022 23:24:12 09/28/19 23 09/27/2022 URIC ACID uric acid 5.0 mg/dL 3.2-8. 6 Not Available [facility] - Manual Order Only [address], [place], [address], 10/03/2022 23:24:12 09/28/19 23 09/27/2022 HEMOG LOBIN A1C HbA1C 5.4 % <5.7 For the purpo se of scree jenna for the prese nce of diabe zoë: <5.7% is consi stent with the absen ce of diabe zoë; 5.7-6 .4% is consi stent with incre ased risk for diabe zoë (pred iabet es); >= 6.5% is consi stent with diabe zoë. This assay resul t is consi stent with a decre ased risk of diabe zoë. Curre ntly, no conse nsus exist fausto smith use of hemog lobin A1c for diagn osis of diabe zoë in child chacne. Accor ding to Ameri can Diabe zoë Assoc iatio n (ADA) guide lines , hemog lobin A1c <7.0% repre sents optim al contr ol in non-p regna nt diabe tic patie nts. Diffe rent ri cs may apply to speci fic patie nt popul ation s. Stand ards of Medic al Care in Diabe zoë (ADA) . Not Available [facility] - Manual Order Only [address], [place], [address], 10/03/2022 23:24:13 09/28/19 23 09/27/2022 HEMOG LOBIN A1C estimated average glucose 108 mg/dL <117 The estim ated avera ge gluco se value is an adjun ct to the treat ment of both Type I and Type II Diabe zoë. It is not inten ded for the diagn osis or risk asses sment of patie nts witho ut diabe zoë. (Refe rence : Karol VEGA et al. Diabe zoë Care 2008; 31:14 73-14 78). Not Available [facility] - Manual Order Only [address], [place], [address], 10/03/2022 23:24:13 09/28/19 23 09/27/2022 LIPID PANEL cholesterol, total 113 mg/dL <200 Not Available [facility] - Manual Order Only [address], [place], [address], 10/03/2022 23:24:13 09/28/19 23 09/27/2022 LIPID PANEL HDL cholesterol 53 mg/dL >39 Not Available [facility] - Manual Order Only [address], [place], [address], 10/03/2022 23:24:13 09/28/19 23 09/27/2022 LIPID PANEL triglyceride s 112 mg/dL <150 Not Available [facility] - Manual Order Only [address], [place], [address], 10/03/2022 23:24:13 09/28/19 23 09/27/2022 LIPID PANEL LDL cholesterol 40 mg/dL _(vikki c) <100 Chely able range <100 mg/dL for prima ry preve ntion ; <70 mg/dL for patie nts with CHD or diabe tic patie nts with >= 2 CHD risk facto rs. LDL-C is now calcu lated using the Geri n-Hop kins calcu mindy n, which is a valid ated novel metho d provi ding delmy r accur acy than the Fried erika equat ion in the estim ation of LDL-C . Geri garcía SS et al. LAYLA. 2013; 310(1 9): 2061- 2068 (http ://ed jorgeati on.Qu Chace [employer]. com/f aq/FA Q164) Not Available [facility] - Manual Order Only [address], [place], [address], 10/03/2022 23:24:13 09/28/19 23 09/27/2022 LIPID PANEL chol/HDL-C 2.1 calc <3.6 Not Available [facility] - Manual Order Only [address], [place], [address], 10/03/2022 23:24:13 09/28/19 23 09/27/2022 LIPID PANEL non-HDL cholesterol 60 mg/dL _(vikki c) <130 For patie nts with diabe zoë plus 1 major ASCVD risk facto r, treat ing to a non-H DL-C goal of <100 mg/dL (LDL- C of <70 mg/dL ) is consi dered a thera peuti c optio n. Not Available [facility] - Manual Order Only [address], [place], [address], 10/03/2022 23:24:13 09/28/19 23 09/27/2022 MYELO PEROX IDASE myeloperoxid ase 442 pmol/ L <470 Based on a high risk sub-p opula tion (N=92 0) defin ed as ambul atory stabl e patie nts witho ut acute coron geovanna syndr ome who under went elect candis diagn ostic coron geovanna angio graph y (1) and a refer ence range study of appar ently healt hy donor s, we have defin ed the follo wing cut-o ffs for MPO: A cut-o ff of <470 pmol/ L defin es an 'appa rentl y healt hy' popul ation at optim al relat candis risk for a cardi ovasc ular event , 470-5 39 pmol/ L defin es a popul ation at moder ate relat candis risk for a cardi ovasc ular event (2-fo ld incre ased risk of MACE at 3 years ), and > = 540 pmol/ L defin es a popul ation with a high relat candis risk for a cardi ovasc ular event . (Refe rence : 1. Oh et al. Am J Cardi ol. 2013; 111:4 65-47 0 and perso nal commu nicat ion with [place] murrell al). This test was devel oped and its chapincito tical perfo rmanc e katarina cteri stics have been deter mined by [facility] ometa azar hill of Krishna boone at [facility]. It has not been clear ed or appro philippe by the U.S. Food and Drug Admin istra tion. This assay has been valid ated pursu ant to the CLIA regul ation s and is used for clini vikki purpo ses. Not Available [facility] - Manual Order Only [address], [place], [address], 10/03/2022 23:24:14 09/28/19 23 09/27/2022 VITAM IN D 25 HYDRO XY LC-MS /MS vitamin D 25 hydroxy by lc-MS/MS 25.4 NG/mL >29.9 low Vitam in D, 25-Hy droxy repor ts eric ntrat ions of two commo n forms , 25-OH D2 and 25-OH D3. 25-OH D3 indic ates both endog enous produ ction and suppl ement ation . 25-OH D2 is an indic ator of exoge nous sourc es, such as diet or suppl ement ation . Thera py is based on measu remen t of Total 25-OH D, with level s <20 ng/mL indic ative of Vitam in D defic iency , while level s betwe en 20 ng/mL and 30 ng/mL sugge st insuf ficie ncy. Optim al level s are >=30 ng/mL . Vitam in-D is fat-s olubl e and there fore inadv erten t or inten latisha l inges tion of exces sivel y high amoun ts could be toxic . Studi es in child chance and adult s sugge st blood level s would need to excee d 150 ng/mL befor e there is any eric rn. Amanda wu MF, Yuri hopper NC, Yokasta off-f errprincess i LEON, et al. Evalu ation , treat ment, and preve ntion of vitam in D defic iency : an Endoc rine Socie ty clini vikki pract ice guide line. J Clin Endoc rinol Metab . 2011; 96(7) :1911 -30. This test is perfo rmed by a Liqui d Chrom atogr aphy- Tande m Mass Spect romet ry (LC-M S/MS) zack dangelo. This test was devel oped and its perfo rmanc e katarina cteri stics deter mined by the [facility] It has not been clear ed or appro philippe by the U.S. FDA. The [facility] is regul ated under Clini vikki Labor atory Impro vemen t Amend ments (CLIA ) as quali fied to perfo rm high- compl exity testi ng. This test is used for clini vikki purpo ses. It shoul d not be regar ded as inves tigat ional or for resea rch. Not Available [facility] - Manual Order Only [address], [place], [address], 10/03/2022 23:24:14 09/28/19 23 09/27/2022 urina lysis , dipst ick Leukocytes negati ve Not Available Main Office [address], [place], [address], 09/27/2022 09:22:46 09/28/19 23 09/27/2022 urina lysis , dipst ick Nitrite negati ve Not Available Main Office [address] [facility] [facility] [address], [place], [address], 09/27/2022 09:22:46 09/28/19 23 09/27/2022 urina lysis , dipst ick Urobilinogen 0.2 Not Available Main Office [address] [facility] [facility] [address], [place], [address], 09/27/2022 09:22:46 09/28/19 23 09/27/2022 urina lysis , dipst ick Protein negati ve Not Available Main Office [address] [address], [place], [address], 09/27/2022 09:22:46 09/28/19 23 09/27/2022 urina lysis , dipst ick pH 6.0 Not Available Main Offic e [address] [address], [place], [address], 09/27/2022 09:22:46 09/28/19 23 09/27/2022 urina lysis , dipst ick Blood negati ve Not Available Main Office [address] [facility] [address], [place], [address], 09/27/2022 09:22:46 09/28/19 23 09/27/2022 urina lysis , dipst ick Specific [place] 1.020 Not Available Main O ffice [address] [facility] [facility] [address], [place], [address], 09/27/2022 09:22:46 09/28/19 23 09/27/2022 urina lysis , dipst ick Ketone negati ve Not Available Main Office [address] [facility] [address], [place], [address], 09/27/2022 09:22:46 09/28/19 23 09/27/2022 urina lysis , dipst ick Bilirubin negati ve Not Available Main Office [address] [facility] [address], [place], [address], 09/27/2022 09:22:46 09/28/19 23 09/27/2022 urina lysis , dipst ick Glucose negati ve Not Available Main Office [address] [facility] [address], [place], [address], 09/27/2022 09:22:46 09/28/19 23 09/27/2022 urina lysis , dipst ick Color yellow Not Available Main Offic e [address] [address], [place], [address], 09/27/2022 09:22:46 09/28/19 23 09/27/2022 urina lysis , dipst ick Appearance light/ normal Not Available Main Office [address] [facility] [address], [place], [address], 09/27/2022 09:22:46 09/28/19 23 09/27/2022 mann anxie ty inven tory* Total Score 1 Not Available Main O ffice [address] [address], [place], [address], 09/27/2022 09:22:44 09/28/19 23 09/27/2022 mann anxie ty inven tory* Indication Normal Not Available Main Of fice [address] [facility] [address], [place], [address], 09/27/2022 09:22:44 09/28/19 23 09/27/2022 epwor th sleep iness scale * Total Score 3 Not Available Main O ffice [address] [facility] [address], [place], [address], 09/27/2022 09:22:45 09/28/19 23 09/27/2022 epwor th sleep iness scale * Indication normal Not Available Main Of fice [address] [address], [place], [address], 09/27/2022 09:22:45 09/28/19 23 09/27/2022 chauncey metry testi ng* Spirometry Not Available Main Of [facility] [address] [address], [place], [address], 09/27/2022 09:22:43 09/28/19 23 09/27/2022 chauncey metry testi ng* Status if Not Performed Not Available Main O ffice [address] [address], [place], [address], 09/27/2022 09:22:43 09/28/19 23 09/27/2022 (ATUL) ankle brach ial index * Arm- Right 114 Not Available Main Of [facility] [address] [address], [place], [address], 09/27/2022 09:22:44 09/28/19 23 09/27/2022 (ATUL) ankle brach ial index * Arm- Left 120 Not Available Main Off ice [address] [address], [place], [address], 09/27/2022 09:22:44 09/28/19 23 09/27/2022 (ATUL) ankle brach ial index * Leg- Right 160 Not Available Main Of [facility] [address] [address], [place], [address], 09/27/2022 09:22:44 09/28/19 23 09/27/2022 (ATUL) ankle brach ial index * Leg- Left 162 Not Available Main Off ice [address] [address], [place], [address], 09/27/2022 09:22:44 09/28/19 23 09/27/2022 (ATUL) ankle brach ial index * ATUL Pressure- Right 1.40 Not Available Main O ffice [address] [address], [place], [address], 09/27/2022 09:22:44 09/28/19 23 09/27/2022 (ATUL) ankle brach ial index * ATUL Pressure- Left 1.42 Not Available Main O ffice [address] [address], [place], [address], 09/27/2022 09:22:44 09/28/19 23 09/27/2022 visua l acuit y* Color 01/06 Not Available Main Offic e [address] [address], [place], [address], 09/27/2022 09:22:44 09/28/19 23 09/27/2022 tissue technologist test* Unknown Analyte 82.2 Not Available Main O ffice [address] [address], [place], [address], 09/27/2022 09:22:47 09/28/19 23 09/27/2022 tissue technologist test* Unknown Analyte 85 Not Available Main O ffice [address] [address], [place], [address], 09/27/2022 09:22:47 09/28/19 23 09/27/2022 tissue technologist test* Unknown Analyte 83.5 Not Available Main O ffice [address] [address], [place], [address], 09/27/2022 09:22:47 09/28/19 23 09/27/2022 tissue technologist test* Unknown Analyte 82.4 Not Available Main O ffice [address] [address], [place], [address], 09/27/2022 09:22:47 09/28/19 23 09/27/2022 tissue technologist test* Unknown Analyte 79.1 Not Available Main O ffice [address] [address], [place], [address], 09/27/2022 09:22:47 09/28/19 23 09/27/2022 tissue technologist test* Unknown Analyte 76.5 Not Available Main O ffice [address] [facility] [address], [place], [address], 09/27/2022 09:22:47 09/28/19 23 09/27/2022 gait test (PROC ) Time taken to walk 4m 2.83 Not Available Main Office [address] [facility] [address], [place], [address], 09/27/2022 09:22:46 09/28/19 23 09/27/2022 gait test (PROC ) Gait speed in meters p/s 1.41 Not Available Main O ffice [address] [facility] [address], [place], [address], 09/27/2022 09:22:46 01/31/20 23 01/30/2023 CMP/C BC/UR IC ACID WBC 7.1 10'3/ uL 3.6-10 .2 Not Available [facility] (Lab) [address], [place], [address], 01/31/2023 07:29:00 01/31/20 23 01/30/2023 CMP/C BC/UR IC ACID RBC 4.71 10'6/ uL (based on docume nted legal sex) 4.40-6 .00 Not Available [facility] (Lab) [address] , [place], [address], 01/31/2023 07:29:00 01/31/20 23 01/30/2023 CMP/C BC/UR IC ACID HGB 14.9 g/dL (based on docume nted legal sex) 13.2-1 8.0 Not Available [facility] (Lab) [address], [place], [address], 01/31/2023 07:29:00 01/31/20 23 01/30/2023 CMP/C BC/UR IC ACID HCT 42.7 % (based on docume nted legal sex) 41.0-5 5.0 Not Available [facility] (Lab) [address], [place], [address], 01/31/2023 07:29:00 01/31/20 23 01/30/2023 CMP/C BC/UR IC ACID MCV 90.7 fL 82.0-9 9.0 Not Available [facility] (Lab) [address], [place], [address], 01/31/2023 07:29:00 01/31/2001/30/2023 CMP/C BC/UR IC ACID MCH 31.6 pg 27.0-3 3.0 Not Available [facility] (Lab) [address], [place], [address], 01/31/2023 07:29:00 01/31/2001/30/2023 CMP/C BC/UR IC ACID MCHC 34.9 g/dL 32.0-3 6.0 Not Available [facility] (Lab) [address], [place], [address], 01/31/2023 07:29:00 01/31/2001/30/2023 CMP/C BC/UR IC ACID RDW 11.9 % 11.0-1 5.0 Not Available [facility] (Lab) [address], [place], [address], 01/31/2023 07:29:00 01/31/2001/30/2023 CMP/C BC/UR IC ACID plt 211 10'3/ uL 150-45 0 Not Available [facility] (Lab) [address], [place], [address], 01/31/2023 07:29:00 01/31/20 23 01/30/2023 CMP/C BC/UR IC ACID MPV 9.6 fL 9.8-12 .7 low Not Available [facility] (Lab) [address] [place], [address], 01/31/2023 07:29:00 01/31/20 23 01/30/2023 CMP/C BC/UR IC ACID NRBC's 0.0 % 0 Not Available [facility] (Lab) [address] [facility] [facility], [place], [address], 01/31/2023 07:29:00 01/31/20 23 01/30/2023 CMP/C BC/UR IC ACID absolute NRBCs 0.0 10'3/ uL 0 Not Available [facility] (Lab) [address], [place], [address], 01/31/2023 07:29:00 01/31/20 23 01/30/2023 CMP/C BC/UR IC ACID neutrophils 67.6 % 37.0-7 2.0 Not Available [facility] (Lab) [address], [place], [address], 01/31/2023 07:29:00 01/31/20 23 01/30/2023 CMP/C BC/UR IC ACID lymphocytes 21.6 % 16.0-4 8.0 Not Available [facility] (Lab) [address], [place], [address], 01/31/2023 07:29:00 01/31/20 23 01/30/2023 CMP/C BC/UR IC ACID monocytes 7.4 % 4.0-14 .0 Not Available [facility] (Lab) [address], [place], [address], 01/31/2023 07:29:00 01/31/20 23 01/30/2023 CMP/C BC/UR IC ACID eosinophils 1.7 % 0.0-9. 0 Not Available [facility] (Lab) [address], [place], [address], 01/31/2023 07:29:00 01/31/20 23 01/30/2023 CMP/C BC/UR IC ACID basophils 1.0 % 0.0-2. 0 Not Available [facility] (Lab) [address], [place], [address], 01/31/2023 07:29:00 01/31/20 23 01/30/2023 CMP/C BC/UR IC ACID immature granulocytes 0.7 % no define d refere nce range Not Available [facility] (Lab) [address], [place], [address], 01/31/2023 07:29:00 01/31/20 23 01/30/2023 CMP/C BC/UR IC ACID absolute neutrophils 4.8 10'3/ uL 1.1-6. 0 Not Available [facility] (Lab) [address], [place], [address], 01/31/2023 07:29:00 01/31/20 23 01/30/2023 CMP/C BC/UR IC ACID absolute lymphocytes 1.5 10'3/ uL 0.7-3. 4 Not Available [facility] (Lab) [address], [place], [address], 01/31/2023 07:29:00 01/31/20 23 01/30/2023 CMP/C BC/UR IC ACID absolute monocytes 0.5 10'3/ uL 0.3-1. 0 Not Available [facility] (Lab) [address], [place], [address], 01/31/2023 07:29:00 01/31/20 23 01/30/2023 CMP/C BC/UR IC ACID absolute eosinophils 0.1 10'3/ uL 0.0-0. 6 Not Available [facility] (Lab) [address] [place], [address], 01/31/2023 07:29:00 01/31/20 23 01/30/2023 CMP/C BC/UR IC ACID absolute basophils 0.1 10'3/ uL 0.0-0. 1 Not Available [facility] (Lab) [address] [place], [address], 01/31/2023 07:29:00 01/31/20 23 01/30/2023 CMP/C BC/UR IC ACID absolute immature granulocytes 0.1 10'3/ uL 0.00-0 .10 2022 6:03 AM: P indic ates parti al resul ts on a panel have been relea sed. Addit ional resul ts will follo w. 2022 6:03 AM: This resul t has been final verif ied. No addit ional or kumari ed resul ts are expec giovanna. Not Available [facility] (Lab) [address], [place], [address], 01/31/2023 07:29:00 01/31/20 23 01/30/2023 CMP/C BC/UR IC ACID uric acid 4.8 mg/dL 4.4-7. 6 Not Available [facility] (Lab) [address], [place], [address], 01/31/2023 07:29:00 01/31/20 23 01/30/2023 CMP/C BC/UR IC ACID sodium 139 mmol/ L 133-14 6 Not Available [facility] (Lab) [address] [facility], [place], [address], 01/31/2023 07:29:00 01/31/20 23 01/30/2023 CMP/C BC/UR IC ACID potassium 3.9 mmol/ L 3.5-5. 1 Not Available [facility] (Lab) [address] [facility], [place], [address], 01/31/2023 07:29:00 01/31/20 23 01/30/2023 CMP/C BC/UR IC ACID chloride 105 mmol/ L 98-107 Not Available [facility] (Lab) [address] [facility], [place], [address], 01/31/2023 07:29:00 01/31/20 23 01/30/2023 CMP/C BC/UR IC ACID carbon dioxide 25 mmol/ L 21-31 Not Available [facility] (Lab) [address] [facility], [place], [address], 01/31/2023 07:29:00 01/31/20 23 01/30/2023 CMP/C BC/UR IC ACID anion gap 9 mmol/ L 4-13 Not Available [facility] (Lab) [address] [facility], [place], [address], 01/31/2023 07:29:00 01/31/20 23 01/30/2023 CMP/C BC/UR IC ACID blood urea nitrogen 24 mg/dL 7-25 Not Available [facility] (Lab) [address], [place], [address], 01/31/2023 07:29:00 01/31/20 23 01/30/2023 CMP/C BC/UR IC ACID creatinine 1.20 mg/dL 0.60-1 .30 Not Available [facility] (Lab) [address] [facility], [place], [address], 01/31/2023 07:29:00 01/31/2001/30/2023 CMP/C BC/UR IC ACID egfrcr (CKD-epi 2020) 65 mL/mi n/1.7 3_m2 >=60 Not Available [facility] (Lab) [address] [facility], [place], [address], 01/31/2023 07:29:00 01/31/20 23 01/30/2023 CMP/C BC/UR IC ACID calcium 9.1 mg/dL 8.3-10 .5 Not Available [facility] (Lab) [address] [facility], [place], [address], 01/31/2023 07:29:00 01/31/20 23 01/30/2023 CMP/C BC/UR IC ACID glucose 90 mg/dL 70-100 Not Available [facility] (Lab) [address] [facility], [place], [address], 01/31/2023 07:29:00 10/03/20 23 01/30/2023 CMP/C BC/UR IC ACID protein, total 6.6 g/dL 6.4-8. 3 Not Available [facility] (Lab) [address] [facility], [place], [address], 01/31/2023 07:29:00 01/31/20 23 01/30/2023 CMP/C BC/UR IC ACID albumin 3.7 g/dL 3.5-5. 0 Not Available [facility] (Lab) [address] [facility], [place], [address], 01/31/2023 07:29:00 01/31/20 23 01/30/2023 CMP/C BC/UR IC ACID ALT 11 units /L 11-51 Not Available [facility] (Lab) [address] [facility], [place], [address], 01/31/2023 07:29:00 01/31/20 23 01/30/2023 CMP/C BC/UR IC ACID alkaline phosphatase 87 units /L 34-104 Not Available [facility] (Lab) [address] [facility], [place], [address], 01/31/2023 07:29:00 01/31/20 23 01/30/2023 CMP/C BC/UR IC ACID AST 15 units /L 13-39 Not Available [facility] (Lab) [address] [facility], [place], [address], 01/31/2023 07:29:00 01/31/2001/30/2023 CMP/C BC/UR IC ACID bilirubin, total 0.9 mg/dL 0.2-1. 2 Not Available [facility] (Lab) [address] [place], [address], 01/31/2023 07:29:00 01/31/20 23 01/30/2023 LIPID PANEL ,AMA (LDL- CALC) total cholesterol 116 mg/dL 0-199 Not Available [facility] (Lab) [address] [facility], [place], [address], 01/31/2023 07:29:01 01/31/20 23 01/30/2023 LIPID PANEL ,AMA (LDL- CALC) triglyceride s 78 mg/dL 0.00-1 50.00 NCEP Refer ence Value s for Trigl yceri myriam: Rebecca l: <150 mg/dL Borde rline High: 150 - 199 mg/dL High: 200 - 499 mg/dL Very High: >/= 500 mg/dL Not Available [facility] (Lab) [address] [facility], [place], [address], 01/31/2023 07:29:01 01/31/2001/30/2023 LIPID PANEL ,AMA (LDL- CALC) HDL cholesterol 45 mg/dL >40 Not Available [facility] (Lab) [address] [facility], [place], [address], 01/31/2023 07:29:01 01/31/20 23 01/30/2023 LIPID PANEL ,AMA (LDL- CALC) LDL cholesterol 55 mg/dL 0-99 Cutof f value s recom diana d by the Natio nal Shawna stero l Educa tion Progr am: CHELY ABLE: Shawna stero l <200 mg/dL LDL <100 mg/dL BORDE RLINE : Shawna stero l 200-2 39 mg/dL LDL 101-1 59 mg/dL HIGHE R RISK: Shawna stero l >240 mg/dL LDL >160 mg/dL , HDL <40 mg/dL Not Available [facility] (Lab) [address] [place], [address], 01/31/2023 07:29:01 01/31/20 23 01/30/2023 LIPID PANEL ,AMA (LDL- CALC) non-HDL cholesterol 71 mg/dL no refere nce range A reaso nable goal for non-H DL shawna stero l is one that is 30 mg/dL highe r than the LDL shawna stero l goal. Not Available [facility] (Lab) [address] [place], [address], 01/31/2023 07:29:01 01/31/20 23 01/30/2023 LIPID PANEL ,AMA (LDL- CALC) chol/HDL ratio 2.6 . 0.0-5. 0 On August 22, 2022, [facility] labor atori aisa kumari ed the equat ion for calcu latin g estim ated low-d ensit y lipop rotei n-cho leste rol (LDL- C) from the Fried erika equat ion to the Geri n/Hop kins equat ion. This new equat ion is only valid for lipid panel s with trigl yceri myriam < 400 mg/dL . Studi es have demon strat ed that this new equat ion will impro ve the accur acy of LDL-C , espec ially in scena rm when LDL-C eric ntrat ions are relat ively low (< 100 mg/dL ), trigl yceri myriam are eleva giovanna, or patie nt is non-f astin g. Refer ences : - Geri garcía, Paras Chance, Zia Price , Ermelinda chase, Stas Marquez, Stas velasquez, Elijah Lambert. Mandy cárdenas , and Janes Mcfarland . 2013. Comp ariso n of a Novel Metho d vs the Fried erika Equat ion for Estim ating Low-D ensit y Lipop rotei n Shawna stero l Level s from the Stand silas Lipid Profi le. LAYLA: The Journ al of the Ameri can Medic al Assoc iatio n 310 (19): 2060- . - Lizzie sánchez V, Kamla J, Sahil ar A, Ariel M, Nan e R, Savannah sánchez E, Mandy cárdenas RS, Bartolo SR, Geri garcía SS. Fast ing Versu s Nonfa sting and Low-D ensit y Lipop rotei n Shawna stero l Accur acy. Circu latmarj n. 2017May 01;137 (1):1 0-19. Not Available [facility] (Lab) [address], [place], [address], 01/31/2023 07:29:01 01/31/2001/30/2023 urina lysis , dipst ick Leukocytes neg Not Available Main Of fice [address] [facility] [address], [place], [address], 01/30/2023 10:31:16 01/31/2001/30/2023 urina lysis , dipst ick Nitrite negati ve Not Available Main Office [address] [facility] [address], [place], [address], 01/30/2023 10:31:16 01/31/2001/30/2023 urina lysis , dipst ick Urobilinogen 0.2 Not Available Main Office [address] [facility] [address], [place], [address], 01/30/2023 10:31:16 01/31/2001/30/2023 urina lysis , dipst ick Protein neg Not Available Main Offic e [address] [facility] [address], [place], [address], 01/30/2023 10:31:16 01/31/2001/30/2023 urina lysis , dipst ick pH 6.5 Not Available Main Offic e [address] [facility] [address], [place], [address], 01/30/2023 10:31:16 01/31/2001/30/2023 urina lysis , dipst ick Blood neg Not Available Main Offic e [address] [facility] [address], [place], [address], 01/30/2023 10:31:16 01/31/2001/30/2023 urina lysis , dipst ick Specific [place] 1.020 Not Available Main O ffice [address] [facility] [address], [place], [address], 01/30/2023 10:31:16 01/31/2001/30/2023 urina lysis , dipst ick Ketone neg Not Available Main Offic e [address] [facility] [address], [place], [address], 01/30/2023 10:31:16 01/31/2001/30/2023 urina lysis , dipst ick Bilirubin neg Not Available Main Off ice [address] [facility] [address], [place], [address], 01/30/2023 10:31:16 01/31/2001/30/2023 urina lysis , dipst ick Glucose nge Not Available Main Offic e [address] [facility] [address], [place], [address], 01/30/2023 10:31:16 01/31/2001/30/2023 urina lysis , dipst ick Appearance normal Not Available Main Of fice [address] [facility] [address], [place], [address], 01/30/2023 10:31:16 01/31/2001/30/2023 urina lysis , dipst ick Color yellow Not Available Main Offic e [address] [facility] [address], [place], [address], 01/30/2023 10:31:16 09/28/19 23 09/27/2022 elect rocar diogr am No observ ation record ed. [email or web address] Main Office [address] [facility] [address], [place], [address], 10/30/2022 11:32:35 09/28/19 23 09/27/2022 audio gram No observ ation record ed. [email or web address] Main Office [address] [facility] [address], [place], [address], 10/30/2022 09:19:53 09/28/19 elect rocar diogr am No observ ation record ed. [email or web address] Not Available 10/31 16:59:42 02/03/2002/01/2023 XR, lumbo sacra l spine , 2 or 3 view No observ ation record ed. [email or web address] [id number] [facility] [address], [place], [address], 02/05/2023 11:16:27 03/02/20 23 03/02/2023 MRI, lumba r spine , w/o contr ast No observ ation record ed. [email or web address] [facility] [address], [place], [address], 03/05/2023 15:52:56 Result Notes None recorded. Problems Name Problem SNOMED Code Status Onset Date Resolution Date Notes Provider Name and Address Organization Details Recorded Time Coronary atherosc lerosis 324773142 Active [address] score [address] [place] LillyERIC galindo Mark 9 11:02:06 Urethrit is 50129949 Completed 201906/21/2020 Bonifacio Jewell MD, FACP [address], [place], [address], Bonifacio Solomon 1 08:11:51 Pain in right knee Active 2019 Bonifacio Jewell MD, FACP [address], [place], [address], Bonifacio Solmoon 0 14:08:16 Tear of meniscus of knee 441946272 Active 2019 ERIC tijerina Mark 0 15:58:01 Syncope 779387161 Active 2020 Bonifacio Jewell MD, FACP [address], [place], [address], Bonifacio Gilliam 1 12:27:18 Prostati tis 5770140 Completed 201506/21/2020 Bonifacio Jewell MD, FACP [address], [place], [address], Bonifacio Gilliam 1 08:11:36 Advance care planning Active 2021 Bonifacio Jewell MD, FACP [address], [place], [address], Bonifacio Solomon 2 18:58:10 Thyroid nodule 950665036 Active [address] Maddi lambert, Surgical Oncology- benign Bonifacio Jewell MD, FACP [address], [place], [address], Bonifacio Solomon 3 16:38:32 Infectiv e urethrit is 641677863 Active 2022 Bonifacio Jewell MD, FACP [address], [place], [address], Bonifacio Solomon 3 10:31:25 Urethral discharg e 9023134 Active 2022 Bonifacio Jewell MD, FACP [address], [place], [address], Bonifacio Solomon 3 10:32:20 Acute prostati tis 99443256 Active 2022 Bonifacio Jewell MD, FACP [address], [place], [address], Bonifacio Solomon 3 15:36:17 Aphthous ulcer of mouth 872707838 Active 2022 Bonifacio Jewell MD, FACP [address], [place], [address], Bonifacio Solomon 3 11:51:14 Otitis media 09761149 Active 2023 Bonifacio Jewell MD, FACP [address], [place], [address], Bonifacio Solomon 4 20:04:02 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, s/p MOHS Bonifacio Jewell MD, FACP [address], [place], [address], Bonifacio Solomon 4 11:35:06 Upper respirat ory infectio n 57773285 Active 2023 Bonifacio Jewell MD, FACP [address], [place], [address], Bonifacio Solomon 4 12:07:22 Physical examinat ion 4410258 Active 2023 Bonifacio Jewell MD, FACP [address], [place], [address], Bonifacio Solomon 4 12:08:22 Hyperten sive disorder 93082335 Active 2014 ERIC Anand Mark 6 15:21:03 Sinusiti s 26540523 Active 2014 Chronic Sinus Drainage ERIC Anand Mark 6 15:21:49 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 ERIC Qiu Mark 8 15:14:15 Nocturia 780635225 Completed 201406/04/2019 Bonifacio Jewell MD, FACP [address], [place], [address], Bonifacio Solomon 0 14:48:00 Hemochro matosis 059620652 Completed 201404/15/2021 Recent Diagnosis Bonifacio Jewell MD, FACP [address], [place], [address], Bonifacio Solomon 1 12:26:16 Keratosi s 817996014 Active 2016 Bonifacio Jewell MD, FACP [address], [place], [address], Bonifacio Solomon 7 11:54:02 Hyperuri cemia 35133738 Active 2017 Bonifacio Jewell MD, FACP [address], [place], [address], Bonifacio Solomon 8 10:47:32 Vitamin D deficien cy 25336447 Active 2017 Bonifacio Jewell MD, FACP [address], [place], [address], Bonifacio Solomon 8 10:47:51 Low back pain 400763302 Active 2018 Bonifacio Jewell MD, FACP [address], [place], [address], Bonifacio Solomon 9 16:18:02 Family history of coronary arterios clerosis 812338268 Active Dr. Min Mari- Cardiolog y Bonifacio Jewell MD, FACP [address], [place], [address], Bonifacio Solomon 9 16:47:18 Testicul ar mass 87357905 Active 2018 Bonifacio Jewell MD, FACP [address], [place], [address], Bonifacio Solomon 9 16:42:13 Problem Notes None recorded. Procedures Surgical History Date Name Laterality Status Provider Name and Address Organization Details Recorded Time 10/31/19 Advanced Care Planning completed Bonifacio Jewell MD, FACP [address] [facility], [place], [address], Bonifacio Solomon 10/31/2022 17:06:46 10/31/19 23 MDVIP SANDAR completed Bonifacio Jewell MD, FACP [address] [facility], [place], [address], Bonifacio Solomno 10/30/2022 09:17:55 12/17/19 Advanced Care Planning completed Bonifacio Jewell MD, FACP [address] [facility],[address], [place], [address], Bonifacio Solomon 12/17/2021 18:58:33 12/17/19 22 MDVIP SANDRA completed Bonifacio Jewell MD, FACP [address] [facility], [place], [address], Bonifacio Solomon 12/16/2021 10:26:41 06/18/19 21 MDVIP SANDRA completed Bonifacio Jewell MD, FACP [address] [facility], [place], [address], Bonifacio Solomon 06/21/2020 08:09:18 02/02/20 20 Influenza Consent completed Bonifacio Ledesma 02/03/2020 12:17:56 06/04/19 20 MDVILg FLORES completed Bonifacio Jewell MD, FACP [address] [facility], [place], [address], Bonifacio Solomon 06/04/2019 14:19:22 02/19/20 19 Influenza Consent completed Bonifacio Gan 02/18/2019 12:37:32 05/10/19 19 MDVIP SANDRA completed Bonifacio Smallwood 05/10/2018 11:13:57 03/20/20 18 colonoscopy completed Bonifacio Ledesma 03/26/2018 15:02:42 02/07/20 18 Influenza Consent completed Marielena Dyer oBnifacio Solomon 02/06/2018 10:52:18 06/06/19 18 Stress tte only completed LourdesBonifacio Arellano 11/28/2017 17:17:20 04/17/20 17 MDVIP SAWE completed Annetta Blount Bonifacio Solomon 04/17/2017 11:29:13 03/15/20 16 MDVIP SAWE completed Contreras JordenBonifacio Sanchez 03/15/2016 11:33:09 06/29/19 14 Diagnostic colonoscopy completed Bonifacio Jewell MD, FACP [address] [facility], [place], [address], Bonifacio Solomon 06/28/2017 17:01:53 08/29/19 13 cardiac assessment completed Bonifacio Jewell MD, FACP [address] [facility] [address], [place], [address], Bonifacio Solomon 05/11/2018 16:24:23 06/29/19 11 Stress tte only completed Bonifacio Jewell MD, FACP [address] [facility], [place], [address], Bonifacio Solomon 05/11/2018 16:22:26 04/30/19 11 cardiac assessment completed Bonifacio Jewell MD, FACP [address] [facility], [place], [address], Bonifacio Solomon 05/11/2018 16:23:32 Imaging Results Imaging Date Name Status LastModified by Organization Details LastModified Time 09/27/2022 electrocardiogram completed [email or web address] Main [facility] [address] [facility] [address], [place], [address], 10/30/2022 11:32:35 09/27/2022 audiogram completed [email or web address] Main Office [address] [facility] [address], [place], [address], 10/30/2022 09:19:53 09/27/2022 electrocardiogram completed [place] [id number] Informa tion not available 10/31/2022 16:59:42 02/01/2023 XR, lumbosacral spine, 2 or 3 view completed [email or web address] [facility] [address], [place], [address], 02/05/2023 11:16:27 03/02/2023 MRI, lumbar spine, w/o contrast completed [email or web address], [place], [address], 03/05/2023 15:52:56 Procedure Notes None recorded. Medical Equipment None Reported. Allergies No known drug allergies Medications Name Sig Start Date Stop Date Status Note LastModified by Organization Details LastModified Time celecoxib 200 mg capsule TAKE 1 CAPSULE BY MOUTH EVERY DAY active Not Available Not Available No t Available amoxicill in 500 mg capsule TAKE 1 CAPSULE BY MOUTH THREE TIMES A DAY FOR 7 DAYS active Not Available Not Available No t Available atorvasta tin 40 mg tablet TAKE 1 TABLET BY MOUTH EVERY DAY active Not Available Not Available No t Available atorvasta tin 80 mg tablet Take 1 tablet every day by oral route. 04/15 completed Not Available Not Available Not Available prednison e 10 mg tablet TAKE 1 TABLET BY MOUTH EVERY DAY 2022 active Not Available Not Available Not Avai lable doxycycli ne hyclate 100 mg capsule Take 1 capsule twice a day by oral route. 06/04 completed Not Available Not Available Not Available ketoconaz ole 2 % shampoo 10/17 completed Not Available Not Available Not Available azithromy kianna 250 mg tablet TAKE 2 TABLETS (500 MG) BY ORAL ROUTE ONCE DAILY FOR 1 DAY THEN 1 TABLET (250 MG) BY ORAL ROUTE ONCE DAILY FOR 4 DAYS 06/04 completed Not Available Not Available Not Available metoprolo l succinate ER 50 mg tablet,ex tended release 24 hr 04/15 completed Not Available Not Available Not Available ampicilli n 500 mg capsule 10/17 completed Not Available Not Available Not Available valacyclo vir 1 gram tablet TAKE 2 TABLETS BY MOUTH EVERY 12 HOURS FOR 1 DAY active Not Available Not Available No t Available meloxicam 15 mg tablet TAKE 1 TABLET BY MOUTH EVERY DAY active Not Available Not Available No t Available fluoroura cil 5 % topical cream PLEASE SEE ATTACHED FOR DETAILED DIRECTIO NS active Not Available Not Available No t Available testoster one 75 mg implant pellet 03/15 completed [employer] roberto arriaga pellets which have been injected into your hip and flank by Dr. Charity Ha in January 2015 Not Available Not Available Not Available Zocor 10 mg tablet Take 1 tablet every day by oral route. 05/11 completed Not Available Not Available Not Available amlodipin e 5 mg tablet TAKE 1 TABLET (5 MG TOTAL) BY MOUTH DAILY. active Not Available Not Available No t Available ciproflox acin 500 mg tablet TAKE 1 TABLET BY MOUTH EVERY 12 HOURS FOR 14 DAYS 10/30 completed Not Available Not Available Not Available sulfameth oxazole 800 mg-trimet hoprim 160 mg tablet TAKE 1 TABLET BY MOUTH EVERY 12 HOURS FOR 30 DAYS active Not Available Not Available No t Available Zantac 75 mg tablet Take 1 tablet as needed by oral route. 06/04 completed for heartbur n Not Available Not Available Not Available tramadol 50 mg tablet Take 1 tablet every 6 hours by oral route as needed. 10/17 completed Not Available Not Available Not Available triamcino lone acetonide 0.1 % topical cream active Not Available Not Available Not Available pantopraz ole 20 mg tablet,de layed release 10/17 completed Not Available Not Available Not Available losartan 100 mg-hydroc hlorothia zide 25 mg tablet TAKE 1 TABLET BY MOUTH EVERY DAY active Not Available Not Available No t Available amoxicill in 875 mg tablet 11/18 completed Not Available Not Available Not Available prednisol one acetate 1 % eye drops,vega pension INSTILL 1 DROP INTO OPERATIV E EYE 3 TIMES DAILY, START 2 DAYS BEFORE SURGERY active Not Available Not Available No t Available diazepam 2 mg tablet TAKE 1 TABLET BY MOUTH THREE TIMES A DAY NEEDED active Not Available Not Available No t Available cephalexi n 500 mg capsule 06/21 completed Not Available Not Available Not Available simvastat in 20 mg tablet Take 1 tablet(s ) every day by oral route. 05/02 completed Not Available Not Available Not Available acyclovir 5 % topical ointment APPLY TO AFFECTED AREA EVERY 3 HOURS 6 TIMES A DAY active Not Available Not Available No t Available neomycin- polymyxin -dexameth 3.5 mg/mL-10, 000 unit/mL-0 .1% eye drops 06/04 completed Not Available Not Available Not Available fluoromet holone 0.1 % eye drops,vega pension 10/17 completed Not Available Not Available Not Available betametha sone dipropion ate 0.05 % topical cream active Not Available Not Available Not Available omeprazol e 20 mg capsule,d elayed release 10/17 completed Not Available Not Available Not Available aspirin 81 mg chewable tablet active Not Available Not Available Not Available aspirin 81 mg tablet Take 1 tablet every day by oral route. 10/17 completed Not Available Not Available Not Available mupirocin 2 % topical ointment 10/17 completed Not Available Not Available Not Available metoprolo l succinate ER 25 mg tablet,ex tended release 24 hr Take 1 tablet(s ) every day by oral route. 10/17 completed Not Available Not Available Not Available Viagra 100 mg tablet Take 1 tablet every day by oral route. 06/04 completed Not Available Not Available Not Available fluocinon walker 0.05 % topical solution 10/17 completed Not Available Not Available Not Available zolpidem 10 mg tablet TAKE ONE TABLET BY MOUTH AT BEDTIME NEEDED FOR SLEEP 10/17 completed Not Available Not Available Not Available methylpre dnisolone 4 mg tablets in a dose pack Take 1 dose pk by oral route as directed . active Not Available Not Available No t Available losartan 50 mg-hydroc hlorothia zide 12.5 mg tablet Take 1 tablet every day by oral route. 10/17 completed Not Available Not Available Not Available Ambien 5 mg tablet Take 1 tablet as needed by oral route at bedtime. 11/20 completed Not Available Not Available Not Available amoxicill in 875 mg-potass ium clavulana te 125 mg tablet Take 1 tablet every 12 hours by oral route for 7 days. 10/30 completed Not Available Not Available Not Available amoxicill in 500 mg-potass ium clavulana te 125 mg tablet TAKE 1 TABLET BY MOUTH EVERY 12 HOURS FOR 7 DAYS active Not Available Not Available No t Available neomycin 3.5 mg/g-poly myxin B 10,000 unit/g-de xameth 0.1 % eye oint 10/17 completed Not Available Not Available Not Available neomycin- polymyxin -hydrocor t 3.5 mg-10,000 unit/mL-1 % ear drops,vega p INSTILL 4 DROPS INTO AFFECTED EAR(S) BY OTIC ROUTE 3 TIMES PER DAY 05/02 completed Not Available Not Available Not Available azithromy kianna 500 mg tablet TAKE 2 TABLETS BY MOUTH EVERY DAY FOR 1 DAY active Not Available Not Available No t Available ezetimibe 10 mg tablet TAKE 1 TABLET BY MOUTH EVERY DAY active Not Available Not Available No t Available moxifloxa kianna 0.5 % eye drops PLEASE SEE ATTACHED FOR DETAILED DIRECTIO NS active Not Available Not Available No t Available Klor-Con M20 mEq tablet,ex tended release TAKE 1 TABLET BY MOUTH EVERY DAY active Not Available Not Available No t Available clobetaso l 0.05 % shampoo 10/17 completed Not Available Not Available Not Available Viagra as needed 10/17 completed 100mg -1/2 Not Available Not Available Not Available GaviLyte- N 420 gram oral solution 11/25 completed Not Available Not Available Not Available bromfenac 0.07 % eye drops INSTILL 1 DROP INTO THE OPERATIV E EYE EVERY DAY, START 2 DAYS PRIOR TO SURGERY active Not Available Not Available No t Available cefixime 400 mg capsule TAKE 2 CAPSULES BY MOUTH EVERY DAY FOR 1 DAY active Not Available Not Available No t Available Vitals Date Recorded Body height Body mass index (BMI) Body weight Body temperature Oxygen saturation Oxygen saturation in Arterial blood by Pulse oximetry Systolic blood pressure Diastolic blood pressure Provider Name and Address Organization Details Last Updated DateTime 3 172.72 cm 34.3 kg/m2 948270. 36 g 97.8 [degF] 97 % 97 % 118 mm[Hg] 80 mm[Hg] Bonifacio Donahue 3 10:05:03 Date Recorded Body height Body mass index (BMI) Body weight Body temperature Heart rate Oxygen saturation Oxygen saturation in Arterial blood by Pulse oximetry Systolic blood pressure Diastolic blood pressure Provider Name and Address Organization Details Last Updated DateTime 3 172.72 cm 34.3 kg/m2 055691. 36 g 97.8 [degF] 68 /min 97 % 97 % 118 mm[Hg] 80 mm[Hg] Bonifacio Jewell MD, FACP [address], [place], [address], Bonifacio Solomon 3 09:18:30 Date Recorded Body height Body temperature Heart rate Oxygen saturation Oxygen saturation in Arterial blood by Pulse oximetry Systolic blood pressure Diastolic blood pressure Provider Name and Address Organization Details Last Updated DateTime 3 172.72 cm 98.4 [degF] 60 /min 96 % 96 % 136 mm[Hg] 84 mm[Hg] Bonifacio Wilson 3 10:09:19 Date Recorded Body height Heart rate Systolic blood pressure Diastolic blood pressure Provider Name and Address Organization Details Last Updated DateTime 02/16/2023 172.72 cm 60 /min 142 mm[Hg] 64 mm[Hg] Bonifacio Jewell MD, FACP [address], [place], [address] , Bonifacio Solomon 02/16/2023 11:44:06 Date Recorded Body temperature Heart rate Oxygen saturation Oxygen saturation in Arterial blood by Pulse oximetry Provider Name and Address Organization Details Last Updated DateTime 02/16/2023 98.6 [degF] 73 /min 96 % 96 % Bonifacio Chacon 3 11:47:09 Date Recorded Body height Body mass index (BMI) Body weight Body temperature Oxygen saturation Oxygen saturation in Arterial blood by Pulse oximetry Systolic blood pressure Diastolic blood pressure Provider Name and Address Organization Details Last Updated DateTime 4 172.72 cm 35.7 kg/m2 273790. 77 g 97.6 [degF] 94 % 94 % 130 mm[Hg] 70 mm[Hg] Bonifacio Gan 4 11:31:36 Date Recorded Heart rate Provider Name an d Address Organization Details Last Updated DateTime 05/30/2023 60 /min Boniafcio Jewell MD, FACP [address], [place], [address]ERIC Mark 05/30/2023 11:49:09 Social History Question Answer Notes LastModified by Organizat ion Details LastModified Time Tobacco Smoking Status Former Smoker Quit 30 years ago. Previous 2 packs per day for 20 years. shania ferreiraer ERIC paredes Mark 01/24/2022 16:41:23 What Is Your Level Of Alcohol Consumption? None [id number] Information not available 03/02/2020 What Was The Date Of Your Most Recent Tobacco Screening? 05/11/2018 [id number] Information not available 03/02/2020 Sex: Unknown Functional Status None recorded. Mental Status None recorded. Family History Relationship Description Onset Age of this Age Resolved Age Notes LastModified by Organization Details LastModified Time Mother Hypertensive disorder 65 [email or web address] Not available 2015 15:28:17 Mother Cerebrovascu lar accident 65 [email or web address] Not available 15:28:26 Mother Congestive heart failure 65 [email or web address] Not available 2015 15:28:45 Father Congestive heart failure 81 [email or web address] Not available 2015 15:29:05 Brother Malignant tumor of lung 50 Half brothe r who was a smoker [email or web address] Not available 02/25/2016 15:29:38 Brother Heart disease [email or web address] Not available 10/26 12:49:15 Medical History No medical history recorded. Immunizations Vaccine Type Date Status Note Provider Nam e and Address Organization Details Recorded Time SARS-COV-2 (COVID-19) vaccine, UNSPECIFIED 3 completed Bonifacio Jewell MD, FACP [address] [facility] [address], [place], [address], Bonifacio Solomon 01/30/2023 10:16:25 influenza, unspecified formulation 3 completed Bonifacio Jewell MD, FACP [address] [facility],[address], [place], [address], Bonifacio Solomon 01/30/2023 10:16:53 influenza, unspecified formulation 6 completed Not Available [facility] 05/31/2019 02:20:04 Influenza, MDCK, quadrivalent, PF 8 completed Not Available [facility] 05/17/2019 02:39:30 tetanus toxoid, unspecified formulation 7 completed Bonifacio Jewell MD, FACP [address] [facility] [address], [place], [address], Bonifacio Solomon 06/28/2017 17:00:33 Influenza, high-dose, trivalent, PF 9 completed Not Available [facility] 05/17/2019 02:39:30 zoster live 4 completed ERIC Pelaez Mark 02/25/2018 12:27:24 Influenza, adjuvanted, quadrivalent, PF 0 completed ERIC tijerina Mark 02/03/2020 12:20:28 Pneumococcal conjugate PCV 13 1 completed ERIC tijerina Mark 07/28/2020 10:39:15 SARS-COV-2 (COVID-19) vaccine, UNSPECIFIED 1 completed ERIC Dixon Mark 07/13/2020 11:05:33 SARS-COV-2 (COVID-19) vaccine, UNSPECIFIED 1 completed ERIC Dixon Mark 07/13/2020 11:05:47 Influenza, split virus, quadrivalent, preservative 1 completed Bonifacio Jewell MD, [facility] [address] [facility] [address], [place], [address], Bonifacio Solomon 04/15/2021 12:09:26 SARS-COV-2 (COVID-19) vaccine, UNSPECIFIED 1 completed Bonifacio Jewell MD, FACP [address] [facility] [address], [place], [address], Bonifacio Solomon 04/15/2021 12:09:54 Pneumococcal conjugate PCV20, polysaccharide FOH311 conjugate, adjuvant, PF 3 completed ERIC Nuñez Mark 01/30/2023 13:01:02 Past Encounters Encounter ID Performer Location Encounter Start Date Encounter Closed Date Diagnosis/Indication Diagnosis SNOMED-CT Code Diagnosis ICD10 Code Diagnosis Note [id number] Bonifacio Jewell MD, FACP Main Office [address] [place] [address] 03/15/2016 11:22:02 03/15/2016 12:36:17 Adult health examination 875720041 Z00.01 Prostatitis 9617141 N41. 9 check UA today. You have seen Urology but declined cystoscopy . Gastroesop hageal reflux disease 707583427 K21.9 This has been controlled with Zantac as needed Hypertensive disorder 38 648239 I10 BP was elevated today. You will be seeing Dr. Mari soon. Review of your BP shows you have been running high numbers, Ideally, want BP < 140/90 Hemochromatosis 18996740 6 E83.119 This would best be followed by Hepatology , Dr. Jacinto at [facility]. Bradycardia 51614925 R00 .1 you have no symptoms with this, The Toprol can contribute to a slow heart rate. 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 You have been followed by Dr. Jacinto at [facility] Polyp of colon 80630488 K63.5 colonoscop y July 15 2013 revealed a 12mm polyp. You will need a repeat colonoscop y by 2019 Administra tion of influenza vaccine 66505373 Z23 [id number] Bonifacio Jewell MD, FACP Main Office [address] [place] [address] 11/20/2016 11:30:57 11/20/2016 12:12:46 Keratosis 829930017 L57.0 hydrocorti sone OTC. f/u Derm Gastroesop hageal reflux disease 904622175 K21.9 This has been controlled with Zantac as needed Hypertensive disorder 38 918053 I10 sl increased today. P: chk BMP at Dr. Mari' next week. [id number] Marielena Dyer Main Office [address] [place] [address] 04/17/2017 11:00:17 04/17/2017 15:17:11 Adult health examination 179459317 Z00.01 [id number] Marielena Dyer Main Office [address] [place] [address] 04/25/2017 14:57:35 04/25/2017 16:09:25 [id number] Bonifacio Jewell MD, FACP Main Office [address] [address] 10/17/2017 10:33:19 10/17/2017 11:03:42 Hypertensive disorder 62322454 I10 controlled . chk BMP Hyperuricemia 52275948 E 79.0 elevated. On HCTZ P: chk uric acid. Vitamin D deficiency 347 74727 E55.9 chk level on Vit D 2,000 u/day. [id number] Marielena Dyer Main Office [address] [facility] [address] [address] 02/06/2018 10:19:41 02/06/2018 11:25:45 Hypertensive disorder 84273259 I10 controlled . chk BMP at [facility] in 3 months Polyp of colon 31783428 K63.5 colonoscop y July 15 2013 revealed a 12mm polyp. You will need a repeat colonoscop y by 2018. There edelmira has already contacted you. Gastroesop hageal reflux disease 300605308 K21.9 Has not been a problem. Influenza vaccine needed 7723329512 106 Z23 [id number] Marielena Dyer Main Office [address] [facility] [address] [address] 05/02/2018 11:25:17 05/02/2018 15:16:22 Adult health examination 893371579 Z00.00 [id number] Helena Paul Main Office [address] [facility] [address] 05/10/2018 10:54:27 05/10/2018 12:40:45 Adult health examination 115926270 Z00.00 Jovanny, the results here are pretty good. I reviewed most of the highlights with you. The main project this coming year is to decrease sugar intake and body weight- this should pull all the other janneth of health concern back into line. Vitamin D deficiency 347 41332 E55.9 YOur level was good. You didn't mention it but you probably should take a Vitamin D gel cap of 1,000 units daily. Hyperuricemia 18988606 E 79.0 YOur uric acid has gone up. This could be due to HCTZ for your blood pressure. I bet with a ten pound weight reduction , you would not need the HCTZ and uric acid would pull back into line ( [place] of life stuff). Gastroesop hageal reflux disease 779618374 K21.9 This seems to be controlled with the ranitidine . Hypertensive disorder 38 875348 I10 Your blood pressure reading today was excellent! Polyp of colon 92288009 K63.5 YOu had a few polyps on recent colonoscop y. You will need another in 3-5 years. Low back pain 325837508 M54.5 I suspect you have spinal stenosis. We ordered an MRI of your back. We will chat after I review those results. [id number] Bonifacio Jewell MD, [facility] Main Office [address] [place] [address] 08/05/2018 16:14:03 08/05/2018 16:49:18 Testicular mass 03903037 N50.89 The testicle was normal He seemed to have had a thrombosis of the plexis of veins. P: now resolved. Pt reassured. [id number] Annetta Gordon Main Office [address] [place] [address] 02/18/2019 12:36:29 02/18/2019 17:53:25 Influenza vaccine needed 8848384994 106 Z23 [id number] [facility] Main Office [address] [place] [address] 05/23/2019 12:13:53 05/26/2019 11:25:34 Adult health examination 851672960 Z00.00 Jovanny, the results here are pretty good. I reviewed most of the highlights with you. The main project this coming year is to decrease sugar intake and body weight- this should pull all the other janneth of health concern back into line. [id number] [facility] Main Office [address] [place] [address] 06/04/2019 13:42:14 06/04/2019 15:54:56 Adult health examination 325900918 Z00.00 Jovanny, the results here are pretty good. 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 Ingress at 600 mph at 100 ft altitude, the importance of focusing on the near rocks is obvious (that is 1,000 feet/sec). I reviewed most of the highlights with you. Your near rocks for the coming year is the BMI /body weight. I'll touch on a few things we reviewed; i'll then make some recommenda tions for the year ahead. Basal cell carcinoma - primary 072875733 C44.91 You have gotten regular follow up for this. Coronary atherosclerosis 897636680 I25.10 YOur lipid profile was excellent. I understand your CT coronary score improved under Dr. Mari and that you will be getting a stress test soon. Gastroesop hageal reflux disease 010165265 K21.9 Decreasing the BMI will help this. Hemochromatosis 31674466 6 E83.119 This would best be followed by Hepatology , Dr. Jacinto at [facility]. Your CBC was fine today. Did you ever follow up with Dr. Jacinto? Please contact the office with update. Hypertensive disorder 38 951900 I10 Your blood pressure reading today was excellent! Hyperuricemia 28244410 E 79.0 Your uric acid today was normal. Drinking 1-2 glasses of fluid each meal will help keep this in check. Low back pain 592952802 M54.5 YOur back pain has persisted but is stable. YOu have seen two Neurosurge on with two different opinions. Vitamin D deficiency 347 05569 E55.9 YOur level was good. Recommend Vitamin D 1,000 units every day. [id number] Lourdes Shankar Main Office [address] [place] [address] 06/18/2019 09:24:53 06/19/2019 15:44:51 Coronary atherosclerosis 611316784 I25.10 to get stress test next week under Dr. Min Mari. Hypertensive disorder 38 934636 I10 Your blood pressure reading was good today. Urethritis 57119636 N34. 2 Exam negative . [place]: [place] [id number] Bonifacio Jewell MD, FACP Main Office [address] [place] [address] 12/08/2019 13:52:31 12/08/2019 22:46:03 Hypertensive disorder 61532809 I10 Your blood pressure reading was good today. Low back pain 292212591 M54.5 YOur back pain has persisted but is stable. YOu have seen two Neurosurge on with two different opinions. Pain in right knee 19400 52140 84631 M25.561 I suspect he has torn lateral meniscus and Duckworth's cyst. P: chk xray. Refer to Ortho. Will probably need MRI . Ibuprofen 800 mg TID w food for 5 days. Lourdes Shankar Main Office [address] [place] [address] 02/02/2020 12:57:52 02/03/2020 12:18:55 Influenza vaccine needed 9869792355 106 Z23 [id number] shania galeas Main Office [address] [place] [address] 06/07/2020 10:12:55 06/07/2020 11:53:39 Adult health examination 720748358 Z00.01 Jovanny, the results here are pretty good. 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 Ingress at 600 mph at 100 ft altitude, the importance of focusing on the near rocks is obvious (that is 1,000 feet/sec). I reviewed most of the highlights with you. Your near rocks for the coming year is the BMI /body weight. I'll touch on a few things we reviewed; i'll then make some recommenda tions for the year ahead. Hypertensive disorder 38 297823 I10 Your blood pressure reading was good today. Jovanny Jewell Main Office [address] [facility] [address] [place] [address] 06/18/2020 10:59:05 06/18/2020 12:57:49 Adult health examination 137133742 Z00.01 Jovanny, the results here are pretty good. 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 Ingress at 600 mph at 100 ft altitude, the importance of focusing on the near rocks is obvious (that is 1,000 feet/sec). I reviewed most of the highlights with you. Your near rocks for the coming year is the BMI /body weight. I'll touch on a few things we reviewed; then make some recommenda tions for the year ahead. Pain in right knee 79965 65590 94276 M25.561 I suspect he has torn lateral meniscus and Duckworth's cyst. YOu were referred to Ortho who did an MRI which demonstrat ed a meniscal tear. Polyp of colon 27446919 K63.5 YOu had a few polyps on recent colonoscop y in 2018. YOu will need another in the coming 12-18 months. Vitamin D deficiency 347 85046 E55.9 YOur level was good. Please continue taking Vitamin D 1,000 units every day. 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 You have been followed by Dr. Jacinto at [facility]. YOur liver tests on this exam were fine. Hemochromatosis 34360731 6 E83.119 This would best be followed by Hepatology , Dr. Jacinto at [facility]. Your CBC was fine today. Did you ever follow up with Dr. Jacinto? Please contact the office with update. Gastroesop hageal reflux disease 633930073 K21.9 Decreasing the BMI will help this. YOur symptoms have been mild. [id number] shania galeas Main Office [address] [facility] [address] [address] 07/28/2020 10:35:52 07/28/2020 10:42:39 Administration of pneumococcal vaccine 61449673 Z23 [id number] Bonifacio Jewell MD, FACP Main Office [address] [facility] [address] [address] 04/15/2021 11:51:51 04/15/2021 12:49:59 Coronary atherosclerosis 814972203 I25.10 This has been controlled . P: chk lipids Hypertensive disorder 38 127370 I10 Your blood pressure reading was good today. Hemochromatosis 12015807 6 E83.119 This would best be followed by Hepatology , Dr. Jacinto at [facility]. Your CBC was fine today. w//u for this was negative.P : chk CMP Syncope 731821435 R55 Was a vasovagal episode , in part caused by meds and non-prescr iption behaviors. [id number] shania galeas Main Office [address] [facility] [address] [place] [address] 11/18/2021 10:34:48 11/18/2021 13:22:59 Adult health examination 032909862 Z00.01 Screening for malignant neoplasm of prostate 567767466 Z12.5 Hypertensive disorder 38 281676 I10 Your blood pressure reading was good today. [id number] Jovanny Jewell Main Office [address] [place] [address] 12/16/2021 10:25:21 12/16/2021 15:58:36 Adult health examination 425627280 Z00.01 Jovanny, the results here are fine. The best thing you can do for your health this year is to continue the weight loss. Coronary atherosclerosis 671295810 I25.10 This has been controlled . YOur lipid profile is excellent! Gastroesop hageal reflux disease 745562002 K21.9 Decreasing the BMI will help this. We discussed taking omeprazole daily and changing the meloxicam to Celebrex. Hypertensive disorder 38 491816 I10 Your blood pressure reading was good today. Polyp of colon 91475345 K63.5 YOu had a few polyps on recent colonoscop y in 2018. YOu will need another in 2022. Viral hepatitis C 778453 07 B19.20 This seems to be well-contr olled. You have been followed by Dr. Jacinto at [facility]. YOur liver tests on this exam were fine. Vitamin D deficiency 347 54203 E55.9 YOur level was good. Please continue taking Vitamin D 1,000 units every day. Low back pain 034055459 M54.50 Physical conditioni ng, particular ly core strengthen ing, can help here. Celebrex may be easier on your stomach. Advance care planning 71 6327280 Z71.89 We discussed the concepts of Durable Power of Healthcare and Living Guevara. YOu have both of these in place. [id number] Bonifacio Jewell MD, FACP Main Office [address] [place] [address] 09/06/2022 15:19:24 09/06/2022 16:06:18 Dysuria 95273492 R30.0 Acute prostatitis 892073 02 N41.0 This actually seems to be the cause of symptoms. He has not had much improvemen t in one week. P: change to Bactrim DS for one month Hypertensive disorder 38 027903 I10 Your blood pressure reading was good today. Low back pain 542334736 M54.50 Physical conditioni ng, particular ly core strengthen ing, can help here. Celebrex may be easier on your stomach. [id number] shaina galeas Main Office [address] [place] [address] 09/27/2022 09:21:59 09/27/2022 11:05:41 Adult health examination 788970151 Z00.01 Jovanny, the results here are fine. The best thing you can do for your health this year is to continue the weight loss. Nocturia 669469634 R35.1 Long-term drug therapy 713799188 Z79.899 [id number] Jovanny Best Main Office [address] [place] [address] 10/30/2022 09:17:17 10/30/2022 14:27:58 Adult health examination 286111493 Z00.01 Jovanny, the results here are fine. The best thing you can do for your health this year is to continue the weight loss. Advance care planning 71 4591783 Z71.89 We discussed the concepts of Durable Power of Healthcare and Living Guevara. YOu have both of these in place. Coronary atherosclerosis 835587262 I25.10 This has been controlled . Your lipid profile is excellent. The LDL (bad kind) is at a evel where there has been data one can get reversal. Hypertensive disorder 38 810184 I10 Your blood pressure reading was good today. Hyperuricemia 37165591 E 79.0 Your uric acid today was normal. Drinking 1-2 glasses of fluid each meal will help keep this in check. Polyp of colon 62820035 K63.5 YOu had a few polyps on recent colonoscop y in 2018. YOu will be getting another this year. Thyroid nodule 667793608 E04.[address] Deras at [facility] for this. Testicular mass 95406716 N50.89 The testicle was normal. There seems to be a varicocele (varicose vein) on today's exam. This is a varicose vein of one of the veins from a testicle. Except for posibly interferin g with male fertility, [place]. [id number] Annetta Blount Main Office [address] [place] [address] 01/30/2023 10:08:50 01/30/2023 15:16:30 Hypertensive disorder 80024654 I10 Your blood pressure reading was good today. Gastroesop hageal reflux disease 021909844 K21.9 Decreasing the BMI will help this. We discussed taking omeprazole daily and changing the meloxicam to Celebrex. Low back pain 684235654 M54.50 It seems to be soft tissue muscle problem. P: heat, chk UA, CBC, CMP Administra tion of pneumococcal vaccine 70994534 Z23 Coronary atherosclerosis 944954254 I25.10 This has been controlled . Your lipid profile is excellent. The LDL (bad kind) is at a evel where there has been data one can get reversal. CHk fasting lipids. Hyperuricemia 20646400 E 79.0 chk uric acid. [id number] [facility] Main Office [address] [facility] [address] [place] [address] 02/16/2023 11:39:32 02/16/2023 15:14:51 Aphthous ulcer of mouth 407963755 K12.0 I think this is actually an apthous ulcer, not H. simplex. Patient smokes occasioona l cigar.P: xovirex ointment 5%5 x/day. 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 Hypertensive disorder 38 997802 I10 blood pressure reading was good today. Thyroid nodule 655777224 E04.1 [address] Deras at [facility] for this. After recent ultrasound , was told no need to f/u as stable for years. Upper resp iratory infection 95754206 J06.9 Resolved. 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 No issues identified . Sees Optho annually. Health Concerns Section Related Observation LastModified by Organization Detai ls LastModified Time None Recorded Concern Status LastModified by Organization Details LastModified Time None Recorded Advance Directives Directive None Recorded Payers Encounter Date Sequence Insurance Name Policy Number Policy Galdamez Covered Member ID Galdamez Member ID Guarantor Name 09/27/2022 1 [place] [id number] 1 Vic H Holten [id number] Vic H Holten 10/30/2022 1 [place] [id number] 1 Vic H Holten [id number] Vic H Holten 01/30/2023 1 [place] [id number] 1 Vic H Holten [id number] Vic H Holten 02/16/2023 1 [place] [id number] 1 Vic H Holten [id number] Vic H Holten 05/30/2023 1 [place] [id number] 1 Vic H Holten [id number] Vic H Holten Notes Date Note Type Note Provider Name and Address Organization Details Recorded Time 09/27/2022 text/html [facility] procedures. ERIC tijerina Mark 09/27/2022 11:00:03 10/30/2022 text/html Patient is here for the [facility] Wellness Program and Subsequent Annual Wellness Exam. During this visit we will review and discuss their Health Risk Assessment and review the various tests and procedures performed as part of the [facility] Annual Wellness Exam. The patient has no current acute medical complaints, nor any recent hospitalizations. Discussion Points for Review during Visit: -Review current medical conditions and specialists' consultations. -Labs and testing review in detail. -Review risks associated w/pain, nutrition, hydration, sleep, and stress, and inactivity. ERIC Coker Mark 11/02/2022 14:11:23 01/30/2023 text/html Started with low back pain starting 5 days ago. Pain is constant and radistes to R mid-axilary line. No difficulty urintating. Denies injry. No long car rides/flights in the past week. Has been playing a lot of golf but only hurts when getting in and out of cart. Annetta Blount ERIC paredes Mark 01/30/2023 10:51:40 02/16/2023 text/html Had lesion to lower lip c/w H. sinplex. Given valacyclovir Jan without effect. Has had cold sores before ERIC Nuñez Mark 06/30/2024 12:42:45 05/30/2023 text/html Had MOHS surgery on lower lip fro sq cell CA, Last week had URI sympptoms with cough, drainage, no fever. Aware of occasional wheeze. 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
--- OUTSIDE RECORDS SUMMARY | 2024-07-24 14:01 | XMS_ITS ---
Author Organization [facility] Address [address] [place] [id number] Care Team Providers Care Recovery Coordinator Name Role Phone Carlos Dodge MD Primary Care Provider [phone] Active Problems Problem Noted Date Diagnosed Date [...] 09/12/2010 Alcoholism Infectious viral hepatitis Substance abuse Current Treatment and Therapy Plans No current plan information found. Past Treatment and Therapy Plans No past plan information found. Lifetime Dose Tracking * Chemical Lifetime Dose Automatic Entry Manual Entr y Fluoro Time 0.6 minutes 0.6 minutes 0 minutes Air kerma at the reference point (Ka,r) 6.2 mGy 6 .2 mGy 0 mGy
--- OUTSIDE RECORDS SUMMARY | 2024-07-24 14:02 | XMS_ITS | Encounter Summary ---
Author Organization [facility] Address [address] [facility] [place] [address] Care Team Providers Care Stone Dresser Name Role Phone Bonifacio Jewell MD Primary Care Provider [phone] Encounter Details Date Type Department Care Team (Late st Contact Info) Description 03/15/2023 Lab Requisition [facility] - DermPath Lab [address] [facility], [place] [id number] Ashish Mcdonald MD [address] [place] [address] Social History Tobacco Use Types Packs/Day Years Used Date Smoking Tobacco: Former Smokeless Tobacco: Never Alcohol Use Standard Drinks/Week Comments Never 0 (1 standard drink = 0.6 oz pur e alcohol) Sex and Gender Information Value Date Recorded Sex Assigned at Not on file Gender Identity Not on file Sexual Orientation Not on file documented as of this encounter Plan of Treatment Not on file documented as of this encounter Procedures Procedure Name Priority Date/Time Associated Diagnosis Comments DERMATOPATHOLOGY Routine 03/13/2023 12:0 0 AM JOURNEYMAN TOOL AND DIE MAKER documented in this encounter Results * DERMATOPATHOLOGY (03/13/2023 12:00 AM JOURNEYMAN TOOL AND DIE MAKER) Case Report Dermatopathology Report Case: [id number] Authorizing Provider: Ashish Mcdonald MD Collected: 03/13/2023 12:00 AM Ordering Location: [facility] Received: 03/15/2023 09:15 AM Pathologist: Emma Devine MD Specimen: Skin, midline lower lip 12:43 PM [facility] DERMAT[facility]ATH[facility]Y [facility] Final Diagnosis Specimen A. 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 The specimen consists of a (2) pieces shave biopsy measuring 7x5x1, 3x4x1 mm. Jar 0. 12:43 PM [facility] DERMATOPATH[facility]Y [facility] Microscopic Description Specimen A. SKIN, midline lower lip: The epidermis shows parakeratosis, full thickness disorderly maturation of keratinocytes, mitoses at different levels, and dyskeratotic cells. These findings are most pronounced on the deeper level sections. The underlying dermis displays an increase in small blood vessels. 12:43 PM [facility] DERMATOPATH[facility]Y [facility] Disclaimer An external and internal positive and negative controls are appropriate for the histochemical, immunohistochemical and immunofluorescence stain(s) in this case (if any), except where stated explicitly. The performance characteristics of the stain(s) cited in this report were developed and its performance characteristic determined by the Dermatopathology Laboratory at [facility], directed by Dr. Justin Whittington. These tests need not be, and therefore are not, approved by the [place] Food and Drug Administration. The tests are used for clinical purposes. Billing Codes Specimen Charges Stain Charges 95442 1 3 12:43 PM [facility]ERMATOP[facility] Embedded Images 12:43 PM [facility] DERMATOP[facility]Y [facility] Pathology/Cytolog y TISSUE SPECIMEN FROM SKIN / Unknown 03/13/2023 03/15/2023 9:15 AM JOURNEYMAN TOOL AND DIE MAKER Ashish Mcdonald MD LAB - PATHOLOGY/[facility] DERMATOPATHOLOGY LABORATORY [facility] - Department of Dermatology [facility] [address] [facility] [phone] documented in this encounter Visit Diagnoses Not on filedocumented in this encounter Care Teams Stone Dresser Relationship Specialty Start Date End Date Bonifacio Jewell MD [address] [facility] [address] [place] [phone] PCP - General Internal Medicine 04/05/23 documented as of this encounter
--- OUTSIDE RECORDS SUMMARY | 2024-07-24 14:02 | XMS_ITS | Clinical Summary ---
Author Organization [facility] Administrative Offices Address [address] [place] [address] Care Team Providers Care Rug Cleaning Supervisor Name Role Phone Bonifacio Jewell MD Primary Care Provider [phone] Allergies No known active allergies Medications atorvastatin (LIPITOR) 40 mg tablet atorvastatin 40 mg tablet Active losartan-hydroC HLOROthiazide (HYZAAR) 100-25 mg tablet losartan 100 mg-hydrochloroth iazide 25 mg tablet Active metoprolol succinate (TOPROL XL) 25 mg Extended Release 24 hour tablet Toprol XL 25 mg tablet,extended release Take 1 tablet(s) every day by oral route. Active ezetimibe (ZETIA) 10 mg tablet Take 10 mg by mouth daily. Active pantoprazole (PROTONIX) 20 mg Tablet, Delayed Release (E.C.) Take 1 Tablet (20 mg) by mouth daily. 30 Tablet 6 1 Active Active Problems Problem Noted Date Diagnosed Date Schmorl's nodes of lumbar region 09/18/2019 Degenerative spondylolisthesis 09/18/2019 DDD (degenerative disc disease), lumbar 02/06/20 19 Family History Medical History Relation Name Comments Heart Disease Father Elwkaruna Stroke Mother Tracy Relation Name Status Comments Father Elwyn Mother Tracy Social History Tobacco Use Types Packs/Day Years Used Date Smoking Tobacco: Former Cigarettes 1.5 5 1 980 - 1984 Alcohol Use Standard Drinks/Week Comments Never 0 (1 standard drink = 0.6 oz pur e alcohol) Sex and Gender Information Value Date Recorded Sex Assigned at Not on file Legal Sex Male 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 Gender Identity Not on file Sexual Orientation Not on file Last Filed Vital Signs Vital Sign Reading Time Taken Comments Blood Pressure 138/78 02/05/2019 10:16 AM CDT Pulse - - Temperature - - Respiratory Rate - - Oxygen Saturation - - Inhaled Oxygen Concentration - - Weight 104.3 kg (230 lb) 09/17/2019 4:18 PM CDT Height 175.3 cm (5' 9 ) 09/17/2019 4:18 PM CDT Body Mass Index 33.97 09/17/2019 4:18 PM CDT Plan of Treatment Health Maintenance Due Date Last Done Comments DTAP/TDAP/TD VACCINES (1 - Tdap) 12/30/1971 FIT-DNA Q 3 years 1997 FIT/FOBT Q 1 year 1997 Flex Sig/CT Colonography Q 5 years 1997 RSV VACCINE (60+ or ) (1 - Risk 60-74 years 1-dose series) 2012 ZOSTER VACCINE (2 of 3) 06/09/2014 04/14/2014 PNEUMOCOCCAL VACCINE 50+ YEA RS (2 of 2 - PPSV23) 09/22/2020 07/28/2020 COLORECTAL SCREENING 06/29/2023 06/28/2013 Colorectal Cancer Screening 06/29/2023 INFLUENZA VACCINE (#1) 2023 0, 02/19/2019, 02/18/2019, Additional history exists Insurance [employer] CHOICE POS II Care Teams Rug Cleaning Supervisor Relationship Specialty Start Date End Date Bonifacio Jewell MD [address] [facility] [address] [place] [phone] PCP - General Internal Medicine 03/12/18
--- OUTSIDE RECORDS SUMMARY | 2024-07-24 14:02 | XMS_ITS | Continuity of Care Document ---
Author Organization [facility] Address [address] [place] [address] Phone Care Team Providers Care Restaurant Hourly Manager Name Role Phone Sd ALANJANELL BENITEZRoque Unavailable Unavailab le Allergies, Adverse Reactions, Alerts Substance Reaction Status Criticality No Known Allergies Active No Inform ation Medications Medication Instructions Dosage Effective Dates (start - stop) Status Comments Aspirin Low Dose 81 mg tablet,delayed release take 1 tablet by oral route every day 81 MG - Active amlodipine 2.5 mg tablet take 1 tablet by oral route every day 2.5 MG - Active Klor-Con 10 mEq tablet,extended release take 1 tablet by oral route every day with food 10 MEQ - Active ezetimibe 10 mg tablet take 1 tablet by oral route every day 10 MG - Active Celebrex 50 mg capsule take 2 capsule by oral route every day 100 MG - Active atorvastatin 40 mg tablet - Active losartan 100 mg-hydrochlorothiazi de 12.5 mg tablet - Active MELOXICAM 15 MG TABLET TAKE 1 TABLET BY MOUTH EVERY DAY - No Longer Active metoprolol succinate ER 25 mg tablet,extended release 24 hr - No Longer Active Procedures Procedure Date Kenalog 40mg/mL Asp/inject major joint or bursa w/o US g uidance Office/outpatient visit,est, low 2022 X-ray exam knee, 4+ views X-ray exam knee, 3 views X-ray Exam Hip Unilat With Pelvis When P erformed; 1 View Office/outpatient visit,est, mod 2021 Asp/inject major joint or bursa w/o US g uidance Kenalog 40mg/mL Asp/inject major joint or bursa w/o US g uidance Monovisc X-ray exam knee, 4+ views Office/outpatient visit,est, mod 2019 Office/outpatient visit,est, mod 2019 Asp/inject major joint or bursa w/o US g uidance Kenalog Triamcinolone acetonide inj Office/outpatient visit,est, mod 2019 Office/outpatient visit,new, mod 2019 X-ray exam knee, 4+ views Advance Directives Directive Yes / No Effective Date File Name No Information Encounters Encounter Description Practice Location Reason(s) For Visit Diagnoses Date Provider Providers Copied on Encounter Office/outpa tient visit,est, low [facility], [address], [id number], [place] tel:[phone] [facility] Left Knee (chief complaint) Pain in left kneeUnilatera l primary osteoarthriti s, left knee 3 Sd Nevarez. [address] [facility] [facility], [address], [id number] , [place]. tel:[phone] Referring Provider: Donn Sanchez S, [address], [place], [address]. tel:[phone] Office/outpa tient visit,est, [facility], [address], [id number], [place] tel:[phone] [facility] bilat knees (chief complaint) Pain in left kneePain in right kneePain in left hipPain in right hipBilateral primary osteoarthriti s of knee 2 Paco Villanueva er. [address], [place], [place], [id number] , [place]. tel: [phone] Referring Provider: Donn Wolff, [address], [place], [address]. tel:[phone] [facility], [address] [facility] [address], [place], [place], [id number], [place] tel:[phone] [facility] No Information 1 Paco Villanueva er. [address] [facility], [place], [place], [id number] , [place]. tel: [phone] [facility], [address] [address], [place], [place], [id number], [place] tel:[phone] [facility] Right Knee (chief complaint) Pain in right kneeUnilatera l primary osteoarthriti s, right knee 0 Beaver Roque. [address] [facility] [place] [address], [place], [place], [id number] , [place]. tel: [phone] Referring Provider: Dustin Jules, [address] [facility] [address] [facility], [place], [address]. tel:[phone] Office/outpa tient visit,est, [facility], [address] [facility] [address], [place], [place], [id number], [place] [phone] [facility] [employer] [facility] Right Knee (chief complaint) Unilateral primary osteoarthriti s, right knee 0 Paco Villanueva er. [address] [facility], [address], [place], [place], [id number] , [place]. tel:[phone] Referring Provider: Donn Wolff, [address], [place], [address]. tel:[phone] Office/outpa tient visit,est, [facility], [address] [address], [place], [place], [id number], [place] tel:[phone] [facility] Right Knee (chief complaint) Complex tear of medial meniscus, current injury, right knee, initial encounterUnil ateral primary osteoarthriti s, right knee Sep-2 0 Paco Villanueva christine. [address] [facility], [place] [address], [place], [place], [id number] , [place]. tel: [phone] Referring Provider: Donn Wolff, [address] [address], [place], [address]. tel:[phone] Office/outpa tient visit,[facility], [facility], [address], [id number], [place] [phone] [facility] r knee (chief complaint) Complex tear of medial meniscus, current injury, right knee, initial encounter Sep-0 0 Daniel Pop. [address] [facility], [place] [address], [place], [place], [id number] , [place]. tel: [phone] Referring Provider: Donn Wolff, [address] [address], [place], [address]. tel:[phone] Office/outpa tient visit,[facility], [facility], [address], [id number], [place] tel:[phone] [facility] Sore knee (chief complaint) Pain in right knee [address] Pop[address] [place] [address], [id number] , [place]. tel:[phone] [facility], [address], [id number], [place] [phone] [facility] [employer] [facility] pain in right knee (chief complaint) No Information 0 Daniel Pop. [address] [place] [address], [id number] , [place]. tel:[phone] Family History Family Member Type Diagnosis Age At Onset Mother Problem (finding) Heart Disease Mother Problem (finding) Hypertension Mother Problem (finding) Stroke Payers Payer name Insurance type Covered democrat ID Authoriza karri(s) Jesica Garces [facility] [id number] Social History Type Description Quantity Date Captured Comments Alcohol Use Details Unknown Caffeine Use Details Unknown Tobacco Use Status No Information Smoking Status Former smoker Non-Smoking Tobacco Use Details : No Details Available : No Details Available Sex Male Vital Signs Date / Time: Height Weight BMI Pulse Rate Blood Pressure Temperature Respiratory Rate Body Surface Area Head Circumference Head Circ. Percentile Wt./Babar. Percentile BMI percentile Pulse Ox Inhaled Ox 3:09 PM 69.00 in 104.326 kg (230.00 lbs) 33.9 6 kg/m jenny (2) Chief Complaint And Reason For Visit From encounter dated '11/29/2022 15:15'. Left Knee (chief complaint). Description: Vic presents to the office today for treatment of hisacute, nontraumatic left knee pain. Denies injury, trauma, or fall since last office visit. Denies fever, chills, generalized feelings of illness or malaise. His pain is been present for a couple of days, is worsened at the patellar region, is moderate to severe and intermittent. It increases with all movement weightbearing and stairs. He is utilizing ibuprofen and Celebrex for pain control. He is ambulating without assistive device. Reason For Referral Reason For Referral No Information Plan Of Treatment Date Type Action Status Referral Ordered: X-ray Exam Hip Unilat With Pelvis When Performed; 1 View Bilateral ordered Referral Ordered: X-ray exam knee, 3 views LT knee ordered Referral Ordered: X-ray exam knee, 4+ views RT knee ordered Referral Ordered: Other RT knee ordered Referral Ordered: MRI lower extrm joint, w/o contrast RT ordered Referral Ordered: X-ray exam knee, 4+ views RT ordered History Of Present Illness Encounter Date Complaint History Of Prese nt Illness Left Sindy Ho presents to the office today for treatment of his acute, nontraumatic left knee pain. Denies injury, trauma, or fall since last office visit. Denies fever, chills, generalized feelings of illness or malaise. His pain is been present for a couple of days, is worsened at the patellar region, is moderate to severe and intermittent. It increases with all movement weightbearing and stairs. He is utilizing ibuprofen and Celebrex for pain control. He is ambulating without assistive device. arlene Ho is a 71 year-old male who presents to the office for evaluation of bilateral knee pain. He presents with bilateral knee pain he denies any trauma. His pain as a 6 out of 10 it is sharp. He has limping. 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 He has had a cortisone injection in the past with some relief he also has used oral anti-inflammatories. He has a history of a meniscus tear in the left knee. Right Knee Vic is a ple asant 69 year old male who presents to the office today for visco supplementation injection into the right knee for treatment of the pain related to osteoarthritis. The pain is predominantly located at the lateral joint line, and is worsened with overexertion, ambulation on uneven terrain and ascending and descending stairs. Pain is rated at a 7 out of 10 with a sharp stabbing, intermittent nature. Pain is managed with the use of meloxicam, rest, reduction of activity and elevation. The patient is ambulating without assistive device at today's visit. 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 He was seen on 01/26/2020 he has a documented meniscal tear and moderate medial compartment arthritis he had a cortisone injection and was sent to physical therapy. He reports limited relief. He presents back today for discussion of further options. He states his knee is still not 100%. Interestingly enough he complains of pain predominately laterally and over the lateral aspect of the patella. He denies any medial joint line or medial pain specifically. He ambulates without an assistive device he is not wearing a brace at this time. 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 He is 5 foot 9 230 pounds. His pain as a 4 out of 10 it is sharp. He has some swelling in the knee pain is worse with bending and walking. Pain is improved with anys-jsg-kwvtwuo medication. He reports a twisting injury that occurred while getting in and out of his airplane noting a pop in his knee. He has been seen by Dr. Donn Sanchez an MRI was ordered which showed a degenerative medial meniscus tear moderate medial compartment arthritis with subchondral bone edema of the medial tibia. At this time the recommendation was made for arthroscopic debridement of the medial meniscus. The patient presents today for second opinion regarding his right knee pain.He denies any mechanical symptoms such as locking catching. He reports his pain is improving somewhat spontaneously. His radiographs are reviewed and these demonstrate moderate medial joint space narrowing with weightbearing there is 2-3 mm of joint space preserved. Mild varus deformity is present. r knee patient presents to the office today for follow up right knee mri results. Sore knee pain in right knee Functional Status Date Functional Assessmen t No Information Instructions Date Instruction Additional Infor abdoulaye Continuation of cons ervative treatments, risks and benefits of cortisone, frequency of injection schedule, medication management, the use of ice or heat, topical products such as Voltaren gel and lidocaine patches, and bracing were reviewed. He will follow up with his primary care physician to discuss discontinuation of either ibuprofen or Celebrex and transition to the use of acetaminophen. Vic demonstrates appropriate understanding of the diagnosis and plan of care and wishes to proceed with cortisone injection into the left knee. All questions were answered and concerns addressed. He will follow up with our office as needed. Dictation completed with [employer] Practice Edition software, grammatical variances and spelling errors may inadvertently occur. Related to Unilateral primary osteoarthritis, left knee After verbal consent was obtained. The patient's left knee was prepped and draped using Betadine and alcohol. A 22-gauge syringe was used to introduce 40 mg of Kenalog and 3 cc of lidocaine through anterior lateral portal. Patient tolerated this procedure well. A sterile dressing was applied. There were no complications. After verbal consent was obtained. The patient's right knee was prepped and draped using Betadine and alcohol. A 22-gauge syringe was used to introduce 40 mg of Kenalog and 3 cc of lidocaine through anterior lateral portal. Patient tolerated this procedure well. A sterile dressing was applied. There were no complications. Related to Bilateral primary osteoarthritis of knee Verbal consent for t he procedure was obtained. The patient was seated with the knees bent to 90 degrees of flexion. The right knee was prepped with alcohol and chlorhexidine. The skin at the injection site was anaesthetised with Ethyl Chloride. A 22 gauge needle was used to introduce 3 mL of 1% Lidocaine plain into the injection site. The area was then re-prepped with alcohol and chlorhexidine. An 18 gauge needle was used to introduce Monovisc into the right knee joint. The area of injection was then cleaned and a sterile bandage was placed. The procedure was completed without complication, and was well tolerated by the patient. Related to Unilateral primary osteoarthritis, right knee After verbal consent was obtained. The patient's right knee was prepped and draped using Betadine and alcohol. A 22-gauge syringe was used to introduce 40 mg of Kenalog and 3 cc of lidocaine through anterior lateral portal. Patient tolerated this procedure well. A sterile dressing was applied. There were no complications. Related to Unilateral primary osteoarthritis, right knee Assessments Type Assessment Date assessment Pain in left knee assessment Unilateral primary osteoarthriti s, left knee Patient Care Teams Name Effective Dates (start - stop) Status Members No Information
--- OUTSIDE RECORDS SUMMARY | 2024-07-24 14:02 | XMS_ITS | Patient Health Record ---
Author Organization [facility] Address [address] [place] [address] Care Team Providers Care Risk Assessment Consultant Name Role Phone Brandon Cui Unavailable [phone] Dilshad Beasley Unavailable Unavailable Allergies No Known Allergies Reason For Referral No Information Medications Medication SIG (Take, Route, Frequency, Duration) Notes Start Date End Date Status Metoprolol Tartrate 25 MG 1 tablet with food Orally Twice a day for 30 day(s) Active Ezetimibe 10 MG 1 tablet Orally Once a day for 30 day(s) Active Atorvastatin Calcium 40 MG 1 tablet Oral ly Once a day for 30 day(s) Active Meloxicam 15 MG 1 tablet on the tong ue and allow to dissolve Orally Once a day for 30 day(s) Active Losartan Potassium-HCTZ 50-12.5 MG 1 tablet Orally Once a day for 30 day(s) Active Aspirin 81 MG 1 tablet Orally Once a day for 30 day(s) Active Social History Tobacco Use: Social History Observation Description Date Details (start date - stop date) Former Smoker NA - NA Tobacco Use/Smoking Question Answer Notes Are you a former smoker How long has it been since you last smoked? > 10 years Alcohol Screen (Audit-C) Question Answer Notes Did you have a drink containing alcohol in the p ast year? No Points 0 Interpretation Negative Tobacco use other than smoking: Question Answer Notes Are you an other tobacco user? 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
--- OUTSIDE RECORDS SUMMARY | 2024-07-24 14:02 | XMS_ITS | Referral Summary ---
Author Organization [facility] Address [address] [place] [address] Care Team Providers Care Rn Lpn Lvn Name Role Phone Carlos Dodge MD Primary Care Provider [phone] Allergies No known active allergies Medications sildenafiL [...] Tetanus Toxoid, Unspecified 04/30/2006 ZOSTER LIVE 04/14/2014 Social History Tobacco Use Types Packs/Day Years Used Date Smoking Tobacco: Former Cigarettes 2 20 1 970 - 1984 Cigars Smokeless Tobacco: Never Tobacco Cessation:Counseling Given: [...] on file Legal Sex Male 8:35 PM ORACLE ARCHITECT Gender Identity Male 08/05/2020 7:57 AM CDT Sexual Orientation Straight 08/05/2020 7: 57 AM CDT Last Filed Vital Signs Vital Sign Reading Time Taken Comments Blood Pressure 124/80 08/28/2023 9:45 AM CDT Pulse 60 08/28/2023 9:45 AM CDT Temperature 36.4 C (97.5 F) 04/24/2023 10:13 AM ORACLE ARCHITECT Respiratory Rate 16 04/24/2023 11:32 AM ORACLE ARCHITECT Oxygen Saturation 96% 08/28/2023 9:45 AM CDT Inhaled Oxygen Concentration - - Weight 106.5 kg (234 lb 12 oz) 08/28/2023 9:45 A M CDT Height 175.3 cm (5' 9 ) 08/28/2023 9:45 AM CDT Body Mass Index 34.67 08/28/2023 9:45 AM CDT Plan of Treatment Not on file Goals Goal Patient Goal Type Associated Problems [...] the likelihood of falling Lifestyle No Alessia Leija RN Note: Below are four things you can [...] on stairs Contact your local community or [facility] for information on exercise, fall prevention programs, or options for improving home safety. Insurance [facility] ANTHEM ACCESS CHOICE ANTHEM ACCESS CHOICE Care Teams Rn Lpn Lvn Relationship Specialty Start Date End Date Carlos Dodge MD [address] [facility] [address] [place] [address] PCP - General Internal Medicine 08/28/23
--- OUTSIDE RECORDS SUMMARY | 2024-07-24 14:02 | XMS_ITS | Clinical Summary ---
Author Organization [facility] Address [address] [place] [address] Care Team Providers Care Budget Record Clerk Name Role Phone Bonifacio Jewell MD Primary Care Provider [phone] Source Comments [facility],non-owned Affiliates and Associated Physician Practices is amultiple site organization consisting of ambulatory clinics and hospital sitesin [place], [place], [place] and [place]. This disclosure is being madepursuant to the Care Everywhere program and may not contain all information available regarding this patient. Last updated 18.[facility] Allergies No known active allergies Medications * Be aware that medications may not be up to date on this document. Alwaysverify current medications with the patient. Medication Sig Dispensed Refills Start Date End Date Status metoprolol succinate XL 24hr (TOPROL XL) 50 MG tablet 07/29/2020 Active atorvastatin (LIPITOR) 40 MG tablet Active aspirin (ASPIRIN) 81 MG chew tablet 1 tablet 08/12/2020 Active ezetimibe (ZETIA) 10 MG tablet ezetimibe 10 mg tablet 01/03/2021 Active losartan-hydroCHLORO thiazide (HYZAAR) 100-12.5 MG tablet Active meloxicam (MOBIC) 15 MG tablet meloxicam 15 mg tablet 07/12/2020 Active sildenafil (VIAGRA) 100 MG tablet Take 100 mg by mouth Active sildenafil (REVATIO) 20 MG tablet Take 1 (one) tablet by mouth once daily as needed (Take as needed for sexual activity. Take up to 100mg daily.) 40 tablet 3 05/09/2021 Active Active Problems No known active problems Social History Tobacco Use Types Packs/Day Years Used Date Smoking Tobacco: Former Smokeless Tobacco: Never Tobacco Cessation:Counseling Given: No Alcohol Use Standard Drinks/Week Comments Never 0 (1 standard drink = 0.6 oz pur e alcohol) Sex and Gender Information Value Date Recorded Sex Assigned at Not on file Gender Identity Not on file Sexual Orientation Not on file Last Filed Vital Signs Vital Sign Reading Time Taken Comments Blood Pressure 130/76 04/05/2023 11:25 AM NUT STEAMER Pulse 64 04/05/2023 11:25 AM NUT STEAMER Temperature 36.3 C (97.4 F) 05/09/2021 2:00 PM NUT STEAMER Respiratory Rate 20 05/09/2021 2:00 PM NUT STEAMER Oxygen Saturation - - Inhaled Oxygen Concentration - - Weight 107 kg (236 lb) 05/09/2021 2:00 PM NUT STEAMER Height 175.3 cm (5' 9 ) 05/09/2021 2:00 PM NUT STEAMER Body Mass Index 34.85 05/09/2021 2:00 PM NUT STEAMER Plan of Treatment Health Maintenance Due Date Last Done Comments COLOGUARD (AGES 45-75) - COLON CA SCREENING [address] COLONOGRAPHY - COLON CA SCREENING 1952 FIT - COLON CA SCREENING 1952 FLEX SIG - COLON CA SCREENING 1952 HEPATITIS C SCREENING 12/25/1970 DTAP/TDAP/TD VACCINES (1 - Tdap) 12/30/1971 PNEUMOCOCCAL VACCINE 50+ (1 of 1 - PCV) 2002 ZOSTER VACCINE (1 of 2) 2002 HEPATITIS B VACCINE (1 of 3 - Risk 3-dose series) 2012 AAA SCREENING 2017 COLONOSCOPY - COLON CA SCREENING 06/29/2023 06/28/2013, 06/27/2013 Colorectal Cancer Screening 06/29/2023 COVID-19 VACCINE ( - 2023- season) 2023 INFLUENZA VACCINE (#1) 2023 , 02/11/2021, 02/18/2019, Additional history exists DEPRESSION SCREENING 04/30/2024 Respiratory Syncytial Virus (RSV) Vaccine Pt: or over 60 yrs (1 - 1-dose 75+ series) 12/30/2027 HIB VACCINE Aged Out No longer eligi ble based on patient's age to complete this topic HPV VACCINE Aged Out No longer eligi ble based on patient's age to complete this topic MENINGOCOCCAL (Group B) VACCINE SHARED DECISION-MAKING Aged Out No longer eligible based on patient's age to complete this topic MENINGOCOCCAL GROUPS A/C/Y/W VACCINE Aged Out No longer eligible based on patient's age to complete this topic Care Teams Budget Record Clerk Relationship Specialty Start Date End Date Bonifacio Jewell MD [address] [phone] PCP - General Internal Medicine 04/05/23
== END 2024-07-24 13:05 | disposition home or self-care (01) ==
PROVIDERS: PCP Internal Medicine; Visit Provider Internal Medicine
DX: Z12.2 Encounter for screening for malignant neoplasm of respiratory organs (principal); Z87.891 Personal history of nicotine dependence
CPT/HCPCS: 71271